=== PATIENT | male | born 1940 | race Caucasian/White ===

== ENCOUNTER 2018-10-29 14:42 | Inpatient (IN) ==
[2018-10-29 16:26] LABS: Basophils % 0.1 %; Eosinophils # 0.2 K/mcL (0.0-0.6); Eosinophils % 2.3 %; Hematocrit 33.4 % (37.5-50.1); Hemoglobin 11.8 g/dL (12.9-16.9); Immature Granulocytes % 0.6 % (0-4); Lymphocytes # 0.8 K/mcL (0.6-4.6); Lymphocytes % 10.7 %; Mean Corpuscular HGB Conc 35.3 g/dL (31.6-35.5); Mean Corpuscular Hemoglobin 34.3 pg (28.0-33.3); Mean Corpuscular Volume 97.1 fL (83.0-100.0); Monocytes # 1.1 K/mcL (0.0-1.3); Monocytes % 15.8 %; Platelet Count 103 K/mcL (140-400); Red Blood Count 3.44 M/mcL (4.19-5.50); Red Cell Distribution Width 12.8 % (11.5-14.5); Segmented Neutrophils % 70.5 %
[2018-10-29 16:36] LABS: INR 1.2; Prothrombin Time 13.7 Seconds (9.4-12.1)
[2018-10-29 16:39] LABS: Activated Partial Thrombo Time 33.9 Seconds (26.0-36.0)
[2018-10-29 16:41] LABS: Troponin I 0.03 ng/mL (< 0.04)
[2018-10-29 16:43] LABS: Alanine Aminotransferase 35 Units/L (7-52); Albumin 3.4 g/dL (3.5-5.7); Alkaline Phosphatase 140 Units/L (34-104); Aspartate Amino Transferase 41 Units/L (13-39); BUN/Creatinine Ratio 19 (6-26); Bilirubin,Direct 0.5 mg/dL (0.0-0.2); Bilirubin,Total 1.5 mg/dL (0.3-1.0); Blood Urea Nitrogen 22 mg/dL (8-23); Calcium 9.2 mg/dL (8.6-10.3); Carbon Dioxide 22 mEq/L (23-29); Chloride 96 mEq/L (98-107); Globulin 3.3 g/dL (2.4-3.5); Glucose 94 mg/dL (70-105); Lipase 76 Units/L (11-82); Osmolality,Calculated 261 (280-300); Potassium 4.5 mEq/L (3.5-5.1); Sodium 124 mEq/L (136-145); Total Protein 6.7 g/dL (6.4-8.9); eGFR For Non-African Americans > 60 (> 60)
[2018-10-29 16:48] LABS: Bilirubin,Urine Negative (Negative); Blood,Urine Negative (Negative); Clarity,Urine Cloudy (Clear); Color,Urine Dark Yellow (Yellow); Glucose,Urine (UA) Normal (Normal); Ketones,Urine Trace mg/dL (Negative); Leukocyte Esterase,Urine Negative (Negative); Nitrite,Urine Negative (Negative); PH,Urine 5.5 pH Units (5.0-8.0); Protein,Urine Negative (Neg-Trace); Specific Gravity,Urine 1.023 (1.010-1.025); Urobilinogen,Urine Normal (Normal)
[2018-10-29 16:50] LABS: Hyaline Casts,Urine None Seen per lpf (None-Few); Squamous Epithelial Cell,Urine Moderate per lpf (None-Few); WBC,Urine 0-3 per hpf (0-3)
[2018-10-29 17:00] LABS: Bacteria,Urine Few per hpf (None-Few); Calcium Oxalate Crystals,Urine Present
[2018-10-29] MEDS ORDERED: 0.9 % Sodium Chloride 1,000 ML IVC ONE (18:10)
--- NOTE | 2018-10-29 18:59 | Emergency Department Note ---
Disposition Clinical Impression: Hyponatremia, History of ascites Cirrhosis Qualifiers: Hepatic cirrhosis type: unspecified hepatic cirrhosis Ascites presence: with ascites Qualified Code(s): K74.60 - Unspecified cirrhosis of liver Disposition: Admitted As Inpatient Condition: Good Referrals: Karl Gamez MD [Primary Care Provider] - General Adult HPI - General Chief complaint: ED General Medical Stated complaint: multiple complaints Time Seen by Provider: 10/29/18 15:33 Source: patient Limitations: no limitations Nursing Notes Reviewed: Yes Vital Signs Reviewed: Yes - History of Present Illness HPI Narrative: 78-year-old male presents emergency department for evaluation of hyponatremia. Patient had outpatient labs taken for evaluation with Dr. Fitzgerald for evaluation of his cirrhosis. Patient states he has had increasing weakness and fatigue over the past week however he denies melena, hematochezia, chest pain, shortness of breath, rash, syncope. Patient has a distended abdomen from his cirrhosis and states it is drained every few weeks. Pain Scale: 5 - Related Data Home Medications Medication Instructions Recorded Confirmed Aspirin Enteric Coated [Aspirin EC] 81 mg PO DAILY 03/04/16 01/25/18 Metoprolol [Lopressor] 25 mg PO BID 03/04/16 01/25/18 Pravastatin Sodium 10 mg PO DAILY 03/04/16 01/25/18 metFORMIN [Glucophage] 500 mg PO BID 03/04/16 01/25/18 Furosemide [Lasix] 40 mg PO DAILY 11/10/17 01/25/18 Spironolactone [Aldactone] 100 mg PO DAILY 11/10/17 01/25/18 Ascorbate Calcium [Vitamin C] 500 mg PO DAILY 01/25/18 01/25/18 Isosorbide MONOnitrate [Isosorbide 10 mg PO BID 01/25/18 01/25/18 Mononitrate] Allergies Allergy/AdvReac Type Severity Reaction Status Date / Time Iodinated Contrast- Oral and AdvReac See Verified 01/25/18 10:01 IV Dye Comments pantoprazole [From Protonix] AdvReac see comment Verified 10/22/18 11:29 All systems ED: reviewed and negative except as stated. Review of Systems: As Per HPI Past Medical History - Past Medical History Attestation: Yes The following information was validated with the patient. Source: patient Medical history: Reports: coronary artery disease, diabetes, hyperlipidemia, myocardial infarction, other Surgical history: Reports: other Psychiatric history: Reports: anxiety - Social History Smoking Status: Former smoker Smokeless Tobacco Status: No Alcohol use: Reports: rarely Drug use: Reports: none Physical Exam General: Alert and in no acute distress Skin: Warm, dry, intact Head: Normocephalic and atraumatic Neck: Supple, trachea midline and no tenderness Cardiovascular: RRR, no murmur, normal perfusion Respiratory: CTAB, no wheezing, cough, or respiratory distress Musculoskeletal: Normal strength, no tenderness, swelling or deformity GI: Soft, nontender, distended abdomen. Bowel sounds present Neuro: A&O to person, place, time and situation. No focal deficits noted on exam Psychiatric: cooperative and appropriate mood and affect. - General Limitations: no limitations General appearance: alert Course Vital Signs Temperature 98.7 F 10/29/18 14:52 Pulse Rate 90 10/29/18 14:52 Respiratory Rate 14 10/29/18 14:52 Blood Pressure 112/72 10/29/18 14:52 O2 Sat by Pulse Oximetry 99 10/29/18 14:52 Temperature 98.7 F 10/29/18 15:31 Pulse Rate 80 10/29/18 18:00 Respiratory Rate 16 10/29/18 18:00 Blood Pressure 115/74 10/29/18 18:00 O2 Sat by Pulse Oximetry 100 10/29/18 18:00 Oxygen Delivery Oxygen Delivery Nasal Cannula Medical Decision Making - [facility] Narrative Medical decision making narrative: Patient is euvolemic hyponatremic. He will be admitted to the hospitalist for further care and evaluation. Patient is comfortable with this plan. - Medical Records Medical records reviewed: Yes I reviewed the patient's medical records. - Lab Data Lab results reviewed: Yes I reviewed the patient's lab results. Result diagrams: 10/29/18 15:54 10/29/18 15:54 Lab Results 10/29/18 10/29/18 10/29/18 Range/Units 15:53 15:54 15:54 WBC 7.1 (4.3-11.1) K/mcL RBC 3.44 L (4.19-5.50) M/mcL Hgb 11.8 L (12.9-16.9) g/dL Hct 33.4 L (37.5-50.1) % MCV 97.1 (83.0-100.0) fL MCH 34.3 H (28.0-33.3) pg MCHC 35.3 (31.6-35.5) g/dL RDW 12.8 (11.5-14.5) % Plt Count 103 L (140-400) K/mcL MPV 9.0 L (9.4-12.4) fL Immature Gran % 0.6 (0-4) % Seg Neutrophils % 70.5 % Lymphocytes % 10.7 % Monocytes % 15.8 % Eosinophils % 2.3 % Basophils % 0.1 % Neutrophils # 5.0 (1.6-8.9) K/mcL Lymphocytes # 0.8 (0.6-4.6) K/mcL Monocytes # 1.1 (0.0-1.3) K/mcL Eosinophils # 0.2 (0.0-0.6) K/mcL Basophils # 0.0 (0.0-0.2) K/mcL PT 13.7 H (9.4-12.1) Seconds INR 1.2 APTT 33.9 (26.0-36.0) Seconds Sodium 124 L (136-145) mEq/L Potassium 4.5 (3.5-5.1) mEq/L Chloride 96 L (98-107) mEq/L Carbon Dioxide 22 L (23-29) mEq/L BUN 22 (8-23) mg/dL Creatinine 1.17 (0.70-1.30) mg/dL Est GFR ( Amer) > 60 (> 60) Est GFR (Non-Af Amer) > 60 (> 60) BUN/Creatinine Ratio 19 (6-26) Glucose 94 (70-105) mg/dL Calculated Osmolality 261 L (280-300) Lactic Acid (0.5-2.2) mmol/L Calcium 9.2 (8.6-10.3) mg/dL Total Bilirubin 1.5 H (0.3-1.0) mg/dL Direct Bilirubin 0.5 H (0.0-0.2) mg/dL Indirect Bilirubin 1.0 (0.0-1.2) mg/dL AST 41 H (13-39) Units/L ALT 35 (7-52) Units/L Alkaline Phosphatase 140 H (34-104) Units/L Ammonia (16-53) mcmol/L Troponin I 0.03 (< 0.04) ng/mL Serum Total Protein 6.7 (6.4-8.9) g/dL Albumin 3.4 L (3.5-5.7) g/dL Globulin 3.3 (2.4-3.5) g/dL Albumin/Globulin Ratio 1.0 L (1.1-2.2) Lipase 76 (11-82) Units/L Urine Color (Yellow) Urine Clarity (Clear) Urine pH (5.0-8.0) pH Units Ur Specific [place] (1.010-1.025) Urine Protein (Neg-Trace) mg/dL Urine Glucose (UA) (Normal) mg/dL Urine Ketones (Negative) mg/dL Urine Blood (Negative) Urine Nitrite (Negative) Urine Bilirubin (Negative) Urine Urobilinogen (Normal) mg/dL Ur Leukocyte Esterase (Negative) Urine Microscopic RBC (0-3) per hpf Urine Microscopic WBC (0-3) per hpf Ur Squamous Epith Cells (None-Few) per lpf Calcium Oxalate Crystal Urine Bacteria (None-Few) per hpf Hyaline Casts (None-Few) per lpf Ur Culture Indicated? (NO) Urine Osmolality (300-1090) mOsm/kg Blood Type Antibody Screen 10/29/18 10/29/18 10/29/18 Range/Units 16:01 16:01 16:14 WBC (4.3-11.1) K/mcL RBC (4.19-5.50) M/mcL Hgb (12.9-16.9) g/dL Hct (37.5-50.1) % MCV (83.0-100.0) fL MCH (28.0-33.3) pg MCHC (31.6-35.5) g/dL RDW (11.5-14.5) % Plt Count (140-400) K/mcL MPV (9.4-12.4) fL Immature Gran % (0-4) % Seg Neutrophils % % Lymphocytes % % Monocytes % % Eosinophils % % Basophils % % Neutrophils # (1.6-8.9) K/mcL Lymphocytes # (0.6-4.6) K/mcL Monocytes # (0.0-1.3) K/mcL Eosinophils # (0.0-0.6) K/mcL Basophils # (0.0-0.2) K/mcL PT (9.4-12.1) Seconds INR APTT (26.0-36.0) Seconds Sodium (136-145) mEq/L Potassium (3.5-5.1) mEq/L Chloride (98-107) mEq/L Carbon Dioxide (23-29) mEq/L BUN (8-23) mg/dL Creatinine (0.70-1.30) mg/dL Est GFR ( Amer) (> 60) Est GFR (Non-Af Amer) (> 60) BUN/Creatinine Ratio (6-26) Glucose (70-105) mg/dL Calculated Osmolality (280-300) Lactic Acid 3.0 H (0.5-2.2) mmol/L Calcium (8.6-10.3) mg/dL Total Bilirubin (0.3-1.0) mg/dL Direct Bilirubin (0.0-0.2) mg/dL Indirect Bilirubin (0.0-1.2) mg/dL AST (13-39) Units/L ALT (7-52) Units/L Alkaline Phosphatase (34-104) Units/L Ammonia (16-53) mcmol/L Troponin I (< 0.04) ng/mL Serum Total Protein (6.4-8.9) g/dL Albumin (3.5-5.7) g/dL Globulin (2.4-3.5) g/dL Albumin/Globulin Ratio (1.1-2.2) Lipase (11-82) Units/L Urine Color Dark Yellow (Yellow) Urine Clarity Cloudy A (Clear) Urine pH 5.5 (5.0-8.0) pH Units Ur Specific [place] 1.023 (1.010-1.025) Urine Protein Negative (Neg-Trace) mg/dL Urine Glucose (UA) Normal (Normal) mg/dL Urine Ketones Trace H (Negative) mg/dL Urine Blood Negative (Negative) Urine Nitrite Negative (Negative) Urine Bilirubin Negative (Negative) Urine Urobilinogen Normal (Normal) mg/dL Ur Leukocyte Esterase Negative (Negative) Urine Microscopic RBC 3-5 H (0-3) per hpf Urine Microscopic WBC 0-3 (0-3) per hpf Ur Squamous Epith Cells Moderate H (None-Few) per lpf Calcium Oxalate Crystal Present Urine Bacteria Few (None-Few) per hpf Hyaline Casts None Seen (None-Few) per lpf Ur Culture Indicated? NO (NO) Urine Osmolality (300-1090) mOsm/kg Blood Type A POSITIVE Antibody Screen NEGATIVE 10/29/18 10/29/18 Range/Units 16:22 16:44 WBC (4.3-11.1) K/mcL RBC (4.19-5.50) M/mcL Hgb (12.9-16.9) g/dL Hct (37.5-50.1) % MCV (83.0-100.0) fL MCH (28.0-33.3) pg MCHC (31.6-35.5) g/dL RDW (11.5-14.5) % Plt Count (140-400) K/mcL MPV (9.4-12.4) fL Immature Gran % (0-4) % Seg Neutrophils % % Lymphocytes % % Monocytes % % Eosinophils % % Basophils % % Neutrophils # (1.6-8.9) K/mcL Lymphocytes # (0.6-4.6) K/mcL Monocytes # (0.0-1.3) K/mcL Eosinophils # (0.0-0.6) K/mcL Basophils # (0.0-0.2) K/mcL PT (9.4-12.1) Seconds INR APTT (26.0-36.0) Seconds Sodium (136-145) mEq/L Potassium (3.5-5.1) mEq/L Chloride (98-107) mEq/L Carbon Dioxide (23-29) mEq/L BUN (8-23) mg/dL Creatinine (0.70-1.30) mg/dL Est GFR ( Amer) (> 60) Est GFR (Non-Af Amer) (> 60) BUN/Creatinine Ratio (6-26) Glucose (70-105) mg/dL Calculated Osmolality (280-300) Lactic Acid (0.5-2.2) mmol/L Calcium (8.6-10.3) mg/dL Total Bilirubin (0.3-1.0) mg/dL Direct Bilirubin (0.0-0.2) mg/dL Indirect Bilirubin (0.0-1.2) mg/dL AST (13-39) Units/L ALT (7-52) Units/L Alkaline Phosphatase (34-104) Units/L Ammonia 34 (16-53) mcmol/L Troponin I (< 0.04) ng/mL Serum Total Protein (6.4-8.9) g/dL Albumin (3.5-5.7) g/dL Globulin (2.4-3.5) g/dL Albumin/Globulin Ratio (1.1-2.2) Lipase (11-82) Units/L Urine Color (Yellow) Urine Clarity (Clear) Urine pH (5.0-8.0) pH Units Ur Specific [place] (1.010-1.025) Urine Protein (Neg-Trace) mg/dL Urine Glucose (UA) (Normal) mg/dL Urine Ketones (Negative) mg/dL Urine Blood (Negative) Urine Nitrite (Negative) Urine Bilirubin (Negative) Urine Urobilinogen (Normal) mg/dL Ur Leukocyte Esterase (Negative) Urine Microscopic RBC (0-3) per hpf Urine Microscopic WBC (0-3) per hpf Ur Squamous Epith Cells (None-Few) per lpf Calcium Oxalate Crystal Urine Bacteria (None-Few) per hpf Hyaline Casts (None-Few) per lpf Ur Culture Indicated? (NO) Urine Osmolality 666 (300-1090) mOsm/kg Blood Type Antibody Screen - Radiology Data Radiology results reviewed: Yes I reviewed the patient's radiology results.
--- NOTE | 2018-10-29 19:32 | Internal Med History&Physical ---
<Shahzad Lopez - Last Filed: 10/30/18 00:13> Date of Encounter: 10/29/18 Time of Encounter: 19:32 Internal Medicine - H&P: HPI Chief complaint: Sent by PCP Admitted From: Home History of present illness: Mr. Cruz is a 78 year old [facility] patient with a past medical history of cirrhosis, diet controlled diabetes mellitus, CAD, and bimonthly therapeutic paracentesis who was sent to the emergency department by his primary care provider, Dr. Gamez, secondary to hyponatremia. Patient reports associated weakness, insomnia, decreased appetite, and itching. Patient reports Dr. Gamez stopped his Metoprolol, Lasix, and Spironolactone due to hypotension at his most recent office visit 10/27/18. Patient reports about 50 pounds weight loss in the past 12 months, most pronounced after therapeutic paracentesis. Last EGD on 01/25/18 revealed grade 1 esophageal varices, portal hypertensive gastropathy, and resolved gastric ulcers found on previous EGD 3 months prior. Patient has been receiving paracentesis every 2 weeks since 09/10/18 due to ascites. Past Med Surg Social Fam HX - Past Medical History Medical history: cirrhosis (esophageal varices), coronary artery disease, diabetes, hyperlipidemia, myocardial infarction, other Additional medical history: facial skin lesion, anemia,. WHITE COAT HYPERTENSION. ANXIETY. DM type II (resolved). GLAUCOMA. ERECTILE DYSFUNCTION. THROMBOCYTOPENIA. MIXED HIGH LIPIDS. CAD Psychiatric history: anxiety - Past Surgical History Surgical History: cataract, other Additional surgical history: cataracts. vasectomy. heart cath - Social History Smoking Status: Former smoker Smokeless Tobacco Status: No Alcohol use: rarely Drug use: none - Family History Mother Living Status: Hx Family Cardiac Disorders: Yes (HTN) Father Living Status: Hx Family Cancer: Yes Internal Medicine - H&P: Meds Aspirin Enteric Coated [Aspirin EC] 81 mg PO DAILY 03/04/16 [History] Metoprolol [Lopressor] 25 mg PO BID 03/04/16 [History] Pravastatin Sodium 10 mg PO DAILY 03/04/16 [History] metFORMIN [Glucophage] 500 mg PO BID 03/04/16 [History] Furosemide [Lasix] 40 mg PO DAILY 11/10/17 [History] Spironolactone [Aldactone] 100 mg PO DAILY 11/10/17 [History] Ascorbate Calcium [Vitamin C] 500 mg PO DAILY 01/25/18 [History] Isosorbide MONOnitrate [Isosorbide Mononitrate] 10 mg PO BID 01/25/18 [History] Allergy/AdvReac Type Severity Reaction Status Date / Time Iodinated Contrast- Oral and AdvReac See Verified 01/25/18 10:01 IV Dye Comments pantoprazole [From Protonix] AdvReac see comment Verified 10/22/18 11:29 All Systems PM: A 10-system review of systems was performed and is negative for pertinent findings except as documented above in the HPI. - Constitutional Constitutional: anorexia, fatigue, lethargy, malaise, weakness, weight loss, no chills, no fever(s), no weight gain - EENT Eyes: no blurry vision, no diplopia Nose, mouth and throat: no dysphagia, no sinus pain, no sore throat - Cardiovascular Cardiovascular ROS IM: no chest pain, no dyspnea, no edema, no orthopnea - Respiratory Respiratory: no cough, no dyspnea, no wheezing, no chest congestion - Gastrointestinal Gastrointestinal: bloating, no abdominal pain, no change in stool character, no constipation, no cramping, no diarrhea, no dyspepsia, no dysphagia, no hematemesis, no hematochezia, no melena, no nausea, no vomiting - Genitourinary Genitourinary ROS male: no dysuria, no urinary frequency, no urinary urgency - Musculoskeletal Musculoskeletal ROS IM: no arthralgias, no back pain, no numbness, no tingling - Integumentary Integumentary IM: no erythema, no new lesions, no rash - Neurological Neurological ROS: weakness, no confusion, no dizziness, no headache(s), no numbness, no tingling - Psychiatric Psychiatric: anxiety, depression - Endocrine Endocrine IM: fatigue, no polydipsia, no polyphagia, no polyuria - Hematologic/Lymphatic Hematologic/Lymphatic: no easy bleeding, no easy bruising - Constitutional Vitals: Temp Pulse Resp BP Pulse Ox 98.7 F 80 16 115/74 100 10/29/18 15:31 10/29/18 18:00 10/29/18 18:00 10/29/18 18:00 10/29/18 18:00 General appearance: Present: cooperative, A&O X 3, pleasant, no acute distress, answers questions appropriately Exam: awake - Head Head exam: Present: atraumatic, normocephalic - Eye Eye exam: Present: EOMI, PERRL, conjuntiva pink, sclera anicteric Pupils: Present: PERRL - ENT ENT exam: Present: mucous membranes moist, normal oropharynx - Neck Neck exam general surgery: Present: supple, trachea midline. Absent: lymphadenopathy - Respiratory Respiratory exam: Present: CTAB. Absent: accessory muscle use, rales, respiratory distress, rhonchi, wheezes - Cardiovascular Cardiovascular exam: Present: RRR, +S1, +S2. Absent: diastolic murmur, gallop, rubs, systolic murmur - GI/Abdominal GI/Abdominal exam: Present: distended, normal bowel sounds, soft, no peritoneal signs. Absent: guarding, tenderness - Expanded GI/Abdominal Exam GI/Abdominal exam expanded: Present: ascites - Extremities Exam Extremities exam: Present: normal inspection, warm, radial pulses palpable and symmetrical. Absent: calf tenderness, cyanotic, pedal edema - Back Exam Back exam: Present: normal inspection. Absent: paraspinal tenderness, tenderness - Neurological Exam Neurological exam: Present: alert, CN II-XII intact, oriented X3, no focal deficits. Absent: facial droop, speech deficit - Psychiatric Psychiatric exam: Present: flat affect. Absent: anxious - Skin Skin exam: Present: dry, intact, normal color, warm Internal Med - H&P Results - Labs CBC & Chem 7: 10/29/18 15:54 10/29/18 20:04 Labs: Short CBC 10/29/18 Range/Units 15:54 WBC 7.1 (4.3-11.1) K/mcL Hgb 11.8 L (12.9-16.9) g/dL Hct 33.4 L (37.5-50.1) % Plt Count 103 L (140-400) K/mcL Neutrophils # 5.0 (1.6-8.9) K/mcL BMP 10/29/18 15:54 Sodium 124 L Potassium 4.5 Chloride 96 L Carbon Dioxide 22 L BUN 22 Creatinine 1.17 Glucose 94 Calcium 9.2 Cardiac Enzymes 10/29/18 Range/Units 15:54 Troponin I 0.03 (< 0.04) ng/mL Liver Function 10/29/18 Range/Units 15:54 Total Bilirubin 1.5 H (0.3-1.0) mg/dL Direct Bilirubin 0.5 H (0.0-0.2) mg/dL AST 41 H (13-39) Units/L ALT 35 (7-52) Units/L Alkaline Phosphatase 140 H (34-104) Units/L Albumin 3.4 L (3.5-5.7) g/dL Urine 10/29/18 Range/Units 16:14 Urine Color Dark Yellow (Yellow) Urine Clarity Cloudy A (Clear) Urine pH 5.5 (5.0-8.0) pH Units Ur Specific [place] 1.023 (1.010-1.025) Urine Protein Negative (Neg-Trace) mg/dL Urine Glucose (UA) Normal (Normal) mg/dL - Pulse Oximetry Interpretation Digit-Finger O2 Sat by Pulse Oximetry: 100 (On 2 L supplemental oxygen) Actions taken: other (Turned off supplemental oxygen) - Assessment and plan (1) Hyponatremia Current Visit: Yes Status: Acute Assessment and plan: Hypovolemic hyponatremia likely secondary to over aggressive outpatient diuresis Na 124, repeat Na level 124 s/p 1L NS Random cortisol 16.7, TSH level 1.3, Urine osmolality 666, urine sodium 31.1, serum osmolality pending Continue NS at 75cc/hr for 1 more liter. Be cautious of over hydration due to need for therapeutic paracentesis every 2 weeks. Monitor BMP q4h, do not correct sodium > 8 mEq in 24 hours to prevent osmotic demyelination syndrome. (2) Cirrhosis Current Visit: Yes Status: Chronic Assessment and plan: Current MELD sodium score is 21 (indicating 7 - 10% Estimated 90-Day Mortality). Patient was referred to IR by poultry buyer Dr. Fitzgerald on 09/29/18, for a TIPS procedure, however Dr. Brewer is not available until 11/17/18 to perform the TIPS procedure per IR staff. Patient reports PCP stopped his metoprolol, Lasix, and Spironolactone due to hypotension at his most recent office visit 10/27/18. Ammonia level 34. Continue home Lactulose Qualifiers: Hepatic cirrhosis type: unspecified hepatic cirrhosis Ascites presence: with ascites Qualified Code(s): K74.60 - Unspecified cirrhosis of liver; R18.8 - Other ascites (3) History of ascites Current Visit: Yes Status: Chronic Assessment and plan: Patient has been receiving paracentesis every 2 weeks since 09/10/18 due to ascites. Last paracentesis 10/22/18 Monitor for signs of fluid overload. (4) History of esophageal varices Current Visit: No Status: Chronic Assessment and plan: Last EGD on 01/25/18 revealed revealed grade 1 esophageal varices, portal hypertensive gastropathy, and resolved gastric ulcers found on previous EGD 3 months prior. (5) Thrombocytopenia Current Visit: Yes Status: Chronic Assessment and plan: No active bleeding. Continue monitoring (6) CAD (coronary artery disease) Current Visit: No Status: Chronic Assessment and plan: Patient advised to stop beta jeff due to hypotension. Continue ASA and statin. Qualifiers: Coronary Disease-Associated Artery/Lesion type: [place] artery [place] vs. transplanted heart: [place] heart Associated angina: angina presence unspecified Qualified Code(s): I25.10 - Atherosclerotic heart disease of [place] coronary artery without angina pectoris (7) HLD (hyperlipidemia) Current Visit: No Status: Chronic Assessment and plan: Continue statin Qualifiers: Hyperlipidemia type: unspecified Qualified Code(s): E78.5 - Hyperlipidemia, unspecified (8) DM type 2 (diabetes mellitus, type 2) Current Visit: Yes Status: Acute Assessment and plan: Diet controlled. Continue low dose SSI and Accu-Cheks ACHS Qualifiers: Diabetes mellitus intermediate insulin use: without long wall shear operator use Diabetes maximilian litus complication status: without complication Qualified Code(s): E11.9 - Type 2 diabetes mellitus without complications (9) DVT prophylaxis Current Visit: Yes Status: Acute Assessment and plan: Heparin subcutaneous - Time Spent With Patient Total time spent is greater than 50% in coordination of care (as documented) at patient's floor/unit and/or counseling patient: <YumikoJose vance - Last Filed: 10/30/18 02:17> Date of Encounter: 10/30/18 Time of Encounter: 01:00 - Constitutional Constitutional: anorexia, fatigue, weakness, no fever(s) - Cardiovascular Cardiovascular ROS IM: no chest pain, no dyspnea - Respiratory Respiratory: no cough, no chest congestion - Gastrointestinal Gastrointestinal: no diarrhea, no hematemesis, no hematochezia, no melena, no vomiting - Genitourinary Genitourinary ROS male: no dysuria, no flank pain, no hematuria - Musculoskeletal Musculoskeletal ROS IM: no arthralgias, no back pain - Integumentary Integumentary IM: no rash - Neurological Neurological ROS: no focal weakness - Constitutional Vitals: Temp Pulse Resp BP Pulse Ox 98.1 F 83 17 111/73 98 10/30/18 00:25 10/30/18 00:25 10/30/18 00:25 10/30/18 00:25 10/30/18 00:25 General appearance: Present: A&O X 3, no acute distress - Head Head exam: Present: normal inspection - Eye Eye exam: Present: PERRL. Absent: scleral icterus - ENT ENT exam: Present: mucous membranes dry, normal exam - Neck Neck exam general surgery: Present: full ROM, supple. Absent: tenderness - Respiratory Respiratory exam: Present: CTAB. Absent: chest wall tenderness, rales, respiratory distress, rhonchi, wheezes - Cardiovascular Cardiovascular exam: Present: RRR - GI/Abdominal GI/Abdominal exam: Present: normal bowel sounds, soft. Absent: tenderness Additional comments: + fluid wave on exam, non-tender - Extremities Exam Extremities exam: Present: warm, radial pulses palpable and symmetrical. Absent: calf tenderness, pedal edema, tenderness - Back Exam Back exam: Absent: CVA tenderness (L), CVA tenderness (R) - Neurological Exam Neurological exam: Present: alert, oriented X3, no focal deficits - Psychiatric Psychiatric exam: Present: normal affect, normal mood - Skin Skin exam: Present: dry, intact, warm Additional comments: + skin tenting Internal Med - H&P Results - Labs CBC & Chem 7: 10/29/18 15:54 10/30/18 00:22 Labs: Short CBC 10/29/18 Range/Units 15:54 WBC 7.1 (4.3-11.1) K/mcL Hgb 11.8 L (12.9-16.9) g/dL Hct 33.4 L (37.5-50.1) % Plt Count 103 L (140-400) K/mcL Neutrophils # 5.0 (1.6-8.9) K/mcL BMP 10/29/18 10/29/18 10/30/18 15:54 20:04 00:22 Sodium 124 L 124 L 121 L Potassium 4.5 4.3 4.5 Chloride 96 L 98 100 Carbon Dioxide 22 L 21 L 21 L BUN 22 21 21 Creatinine 1.17 0.97 0.96 Glucose 94 83 153 H Calcium 9.2 8.8 8.5 L Cardiac Enzymes 10/29/18 Range/Units 15:54 Troponin I 0.03 (< 0.04) ng/mL Liver Function 10/29/18 Range/Units 15:54 Total Bilirubin 1.5 H (0.3-1.0) mg/dL Direct Bilirubin 0.5 H (0.0-0.2) mg/dL AST 41 H (13-39) Units/L ALT 35 (7-52) Units/L Alkaline Phosphatase 140 H (34-104) Units/L Albumin 3.4 L (3.5-5.7) g/dL Urine 10/29/18 Range/Units 16:14 Urine Color Dark Yellow (Yellow) Urine Clarity Cloudy A (Clear) Urine pH 5.5 (5.0-8.0) pH Units Ur Specific [place] 1.023 (1.010-1.025) Urine Protein Negative (Neg-Trace) mg/dL Urine Glucose (UA) Normal (Normal) mg/dL - Time Spent With Patient Total time spent is greater than 50% in coordination of care (as documented) at patient's floor/unit and/or counseling patient: - Attending Attestation I discussed the patient MANZANITA, past medical history, review of systems, lab data, and exam findings with Dr. Lopez. I then saw and examined patient independently. Based on exam and history, I agree with Dr. Lopez that the patient does appear to be intravascularly dry. Other than some mild ascites on exam, he has no evidence of edema. Mucous membranes are quite dry. I agree with holding his diuretics, hydrating him gingerly, and trending his chemistries. Abdomen exam does not suggest any peritonitis and/or tense ascites. Abdomen is quite soft with minimal fluid wave. Other than my comments above and noted exam findings, I agree with Dr. Lopez's assessment and plan.
[2018-10-29] MEDS ORDERED: *HR* Dextrose 50 % in Water (Syg) 50 ML SYRINGE IVP PRN (19:39)
[2018-10-29] MEDS ORDERED: Naloxone 0.4 MG/ML INJ IVP PRN (19:39)
[2018-10-29] MEDS ORDERED: Ondansetron 4 MG/2 ML VIAL IVP PRN (19:39)
[2018-10-29] MEDS ORDERED: Dextrose Gel 15 GM/37.5 ML TUBE PO PRN ×2 (19:39)
[2018-10-29] MEDS ORDERED: Acetaminophen 325 MG TABLET PO PRN (19:39)
[2018-10-29] MEDS ORDERED: D5% in Water 1,000 ML IVC PRN (19:39)
[2018-10-29] MEDS ORDERED: 0.9 % Sodium Chloride 1,000 ML IVC SCH (19:45)
[2018-10-29 20:37] LABS: BUN/Creatinine Ratio 22 (6-26); Blood Urea Nitrogen 21 mg/dL (8-23); Calcium 8.8 mg/dL (8.6-10.3); Carbon Dioxide 21 mEq/L (23-29); Chloride 98 mEq/L (98-107); Glucose 83 mg/dL (70-105); Magnesium 1.8 mg/dL (1.6-2.6); Osmolality,Calculated 260 (280-300); Phosphorous 2.9 mg/dL (2.7-4.5); Potassium 4.3 mEq/L (3.5-5.1); Sodium 124 mEq/L (136-145); eGFR For Non-African Americans > 60 (> 60)
[2018-10-29 21:05] LABS: Estimated Average Glucose 123 mg/dl; Hemoglobin A1C 5.9 %
[2018-10-29] MEDS: *HR* Heparin 5,000 UNIT/ML VIAL SQ SCH (22:18)
[2018-10-29] MEDS: Insulin LISPRO 300 UNITS/3 ML VIAL SQ SCH (22:19)
[2018-10-29] MEDS: Lactulose Oral Soln 20 GM/30 ML UDC PO SCH (22:19)
[2018-10-30 01:03] LABS: BUN/Creatinine Ratio 22 (6-26); Blood Urea Nitrogen 21 mg/dL (8-23); Calcium 8.5 mg/dL (8.6-10.3); Carbon Dioxide 21 mEq/L (23-29); Chloride 100 mEq/L (98-107); Glucose 153 mg/dL (70-105); Osmolality,Calculated 258 (280-300); Potassium 4.5 mEq/L (3.5-5.1); Sodium 121 mEq/L (136-145); eGFR For Non-African Americans > 60 (> 60)
[2018-10-30] MEDS: *HR* Heparin 5,000 UNIT/ML VIAL SQ SCH ×3 (06:15→20:54)
[2018-10-30 07:52] LABS: Mean Corpuscular Hemoglobin 34.5 pg (28.0-33.3); Red Cell Distribution Width 12.6 % (11.5-14.5)
[2018-10-30 07:54] LABS: Hematocrit 32.5 % (37.5-50.1); Hemoglobin 11.3 g/dL (12.9-16.9); Mean Corpuscular HGB Conc 34.8 g/dL (31.6-35.5); Mean Corpuscular Volume 99.1 fL (83.0-100.0); Mean Platelet Volume 9.7 fL (9.4-12.4); Red Blood Count 3.28 M/mcL (4.19-5.50)
[2018-10-30 08:11] LABS: BUN/Creatinine Ratio 22 (6-26); Blood Urea Nitrogen 21 mg/dL (8-23); Calcium 8.6 mg/dL (8.6-10.3); Carbon Dioxide 18 mEq/L (23-29); Chloride 99 mEq/L (98-107); Glucose 97 mg/dL (70-105); Osmolality,Calculated 259 (280-300); Potassium 4.2 mEq/L (3.5-5.1); Sodium 123 mEq/L (136-145); eGFR For Non-African Americans > 60 (> 60)
[2018-10-30] MEDS: Aspirin Enteric Coated 81 MG Tablet PO SCH (08:19)
[2018-10-30] MEDS: Insulin LISPRO 300 UNITS/3 ML VIAL SQ SCH ×4 (08:19→23:26)
[2018-10-30] MEDS: Lactulose Oral Soln 20 GM/30 ML UDC PO SCH ×2 (08:20→20:53)
--- NOTE | 2018-10-30 10:41 | Event Note ---
Date of Encounter: 10/30/18 Time of Encounter: 08:45 H&P reviewed. Patient with history of cirrhosis dependent on intermittent paracentesis is admitted for asymptomatic hyponatremia. Despite IV fluid overnight, his sodium remains at 123. D/c IVF, start salt tab, and monitor his Na. If it doesn't improve, may require nephro consult.
[2018-10-30 12:47] LABS: BUN/Creatinine Ratio 22 (6-26); Blood Urea Nitrogen 21 mg/dL (8-23); Calcium 8.5 mg/dL (8.6-10.3); Carbon Dioxide 20 mEq/L (23-29); Chloride 100 mEq/L (98-107); Glucose 103 mg/dL (70-105); Osmolality,Calculated 261 (280-300); Potassium 4.5 mEq/L (3.5-5.1); Sodium 124 mEq/L (136-145); eGFR For Non-African Americans > 60 (> 60)
[2018-10-30 17:10] LABS: BUN/Creatinine Ratio 20 (6-26); Blood Urea Nitrogen 21 mg/dL (8-23); Calcium 8.8 mg/dL (8.6-10.3); Carbon Dioxide 18 mEq/L (23-29); Chloride 101 mEq/L (98-107); Glucose 132 mg/dL (70-105); Osmolality,Calculated 261 (280-300); Potassium 4.2 mEq/L (3.5-5.1); Sodium 123 mEq/L (136-145); eGFR For Non-African Americans > 60 (> 60)
[2018-10-30] MEDS ORDERED: 0.9 % Sodium Chloride 500 ML IVC ONE (17:21)
[2018-10-30] MEDS ORDERED: 0.9 % Sodium Chloride 500 ML ONE (17:27)
[2018-10-30 21:30] LABS: BUN/Creatinine Ratio 21 (6-26); Blood Urea Nitrogen 22 mg/dL (8-23); Calcium 8.4 mg/dL (8.6-10.3); Carbon Dioxide 21 mEq/L (23-29); Chloride 100 mEq/L (98-107); Glucose 98 mg/dL (70-105); Osmolality,Calculated 265 (280-300); Potassium 4.1 mEq/L (3.5-5.1); Sodium 126 mEq/L (136-145); eGFR For Non-African Americans > 60 (> 60)
[2018-10-31 05:18] LABS: Hematocrit 29.6 % (37.5-50.1); Hemoglobin 10.4 g/dL (12.9-16.9); Immature Platelets 1.1 % (1.1-6.1); Mean Corpuscular HGB Conc 35.1 g/dL (31.6-35.5); Mean Corpuscular Hemoglobin 34.2 pg (28.0-33.3); Mean Corpuscular Volume 97.4 fL (83.0-100.0); Mean Platelet Volume 9.1 fL (9.4-12.4); Red Blood Count 3.04 M/mcL (4.19-5.50); Red Cell Distribution Width 12.5 % (11.5-14.5)
[2018-10-31 05:37] LABS: BUN/Creatinine Ratio 24 (6-26); Blood Urea Nitrogen 24 mg/dL (8-23); Calcium 8.4 mg/dL (8.6-10.3); Carbon Dioxide 18 mEq/L (23-29); Chloride 101 mEq/L (98-107); Glucose 122 mg/dL (70-105); Osmolality,Calculated 269 (280-300); Potassium 4.8 mEq/L (3.5-5.1); Sodium 127 mEq/L (136-145); eGFR For Non-African Americans > 60 (> 60)
[2018-10-31] MEDS: *HR* Heparin 5,000 UNIT/ML VIAL SQ SCH (06:32)
[2018-10-31] MEDS: Insulin LISPRO 300 UNITS/3 ML VIAL SQ SCH ×3 (08:58→18:42)
--- NOTE | 2018-10-31 11:36 | Internal Med Progress Note ---
Hospitalist Progress Note - Encounter Date of Encounter: 10/31/18 Time of Encounter: 09:30 - Subjective Interval History: No acute events overnight. Denies any headache, blurring of vision, or focal weakness/numbness. No SOB or worsening abdominal distention. - Exam Vitals: Temp Pulse Resp BP Pulse Ox 97.9 F 86 16 116/71 95 10/31/18 07:57 10/31/18 07:57 10/31/18 07:57 10/31/18 07:57 10/31/18 07:57 Exam: General: Alert and oriented, not in acute distress. Cardiovascular:Normal S1 & S2, No JVD. Pulse regular. Lungs: clear to auscultation, no wheezes/rales Abdomen:Soft, obese abdomen. Non-tender, no rigidity. Neurological:Normal cognition and motor skills. Non-focal - Assessment and Plan (1) Hyponatremia Current Visit: Yes Status: Acute Assessment and Plan: Sodium trend over the course of yesterday noted. Was stable around 124 until pt was given 500ml of NS as well as sodium chloride 1g TID. Now increased to 127 continue salt tab monitor off IVF repeat BMP at 3pm, if drops again, may require another fluid bolus hold off on lasix (2) DM type 2 (diabetes mellitus, type 2) Current Visit: Yes Status: Acute Assessment and Plan: Diet controlled. Continue low dose SSI and Accu-Cheks ACHS (3) Cirrhosis Current Visit: Yes Status: Chronic Assessment and Plan: not in decompensation PRN paracentesis, scheduled for this coming Thursday lasix, aldactone on hold due to hyponatremia outpatient GI follow up (4) Thrombocytopenia Current Visit: Yes Status: Chronic Assessment and Plan: related to cirrhosis as above no signs and symptoms of bleeding (5) CAD (coronary artery disease) Current Visit: No Status: Chronic Assessment and Plan: resume home meds DVT Prophylaxis: EPCD given downtrending Plt count - Time Spent with Patient Total time spent is greater than 50% in coordination of care (as documented) at patient's floor/unit and/or counseling patient: Plan of Care Discussed with: patient Internal Medicine: Result - Labs CBC & Chem 7: 10/31/18 05:01 10/31/18 05:01 Labs: Short CBC 10/31/18 Range/Units 05:01 WBC 5.5 (4.3-11.1) K/mcL Hgb 10.4 L (12.9-16.9) g/dL Hct 29.6 L (37.5-50.1) % Plt Count 79 L (140-400) K/mcL BMP 10/30/18 10/30/18 10/30/18 12:11 16:22 21:00 Sodium 124 L 123 L 126 L Potassium 4.5 4.2 4.1 Chloride 100 101 100 Carbon Dioxide 20 L 18 L 21 L BUN 21 21 22 Creatinine 0.96 1.06 1.03 Glucose 103 132 H 98 Calcium 8.5 L 8.8 8.4 L 10/31/18 05:01 Sodium 127 L Potassium 4.8 Chloride 101 Carbon Dioxide 18 L BUN 24 H Creatinine 0.99 Glucose 122 H Calcium 8.4 L - ABG Interpretation ABG results: PT/INR, D-dimer PT 13.7 Seconds (9.4-12.1) H 10/29/18 15:53 Consult Discharge Plan - Plan Referrals: Karl Gamez MD [Primary Care Provider] - (2) DM type 2 (diabetes mellitus, type 2) Qualifiers: Diabetes mellitus salvage determiner insulin use: without salvage determiner use Diabetes mellitus complication status: without complication Qualified Code(s): E11.9 - Type 2 diabetes mellitus without complications (3) Cirrhosis Qualifiers: Hepatic cirrhosis type: unspecified hepatic cirrhosis Ascites presence: with ascites Qualified Code(s): K74.60 - Unspecified cirrhosis of liver; R18.8 - Other ascites (5) CAD (coronary artery disease) Qualifiers: Coronary Disease-Associated Artery/Lesion type: [place] artery [place] vs. transplanted heart: [place] heart Associated angina: angina presence unspecified Qualified Code(s): I25.10 - Atherosclerotic heart disease of [place] coronary artery without angina pectoris
[2018-10-31] MEDS: Lactulose Oral Soln 20 GM/30 ML UDC PO SCH ×2 (12:01→21:03)
[2018-10-31] MEDS: Aspirin Enteric Coated 81 MG Tablet PO SCH (12:02)
[2018-10-31] MEDS ORDERED: MOM Conc 10 ML UD.LIQ PO PRN (15:39)
[2018-10-31 16:04] LABS: BUN/Creatinine Ratio 23 (6-26); Blood Urea Nitrogen 26 mg/dL (8-23); Calcium 8.9 mg/dL (8.6-10.3); Carbon Dioxide 18 mEq/L (23-29); Chloride 99 mEq/L (98-107); Glucose 150 mg/dL (70-105); Osmolality,Calculated 268 (280-300); Potassium 4.5 mEq/L (3.5-5.1); Sodium 125 mEq/L (136-145); eGFR For Non-African Americans > 60 (> 60)
[2018-10-31] MEDS ORDERED: 0.9 % Sodium Chloride 1,000 ML IVC SCH (16:45)
[2018-11-01] MEDS: Insulin LISPRO 300 UNITS/3 ML VIAL SQ SCH ×3 (00:01→11:54)
[2018-11-01 03:04] LABS: Hematocrit 28.1 % (37.5-50.1); Hemoglobin 10.1 g/dL (12.9-16.9); Immature Platelets 1.3 % (1.1-6.1); Mean Corpuscular HGB Conc 35.9 g/dL (31.6-35.5); Mean Corpuscular Hemoglobin 34.9 pg (28.0-33.3); Mean Corpuscular Volume 97.2 fL (83.0-100.0); Mean Platelet Volume 9.4 fL (9.4-12.4); Red Blood Count 2.89 M/mcL (4.19-5.50); Red Cell Distribution Width 12.5 % (11.5-14.5)
[2018-11-01 03:25] LABS: BUN/Creatinine Ratio 27 (6-26); Blood Urea Nitrogen 27 mg/dL (8-23); Calcium 8.4 mg/dL (8.6-10.3); Carbon Dioxide 16 mEq/L (23-29); Chloride 101 mEq/L (98-107); Glucose 121 mg/dL (70-105); Osmolality,Calculated 266 (280-300); Potassium 4.7 mEq/L (3.5-5.1); Sodium 125 mEq/L (136-145); eGFR For Non-African Americans > 60 (> 60)
[2018-11-01] MEDS: Lactulose Oral Soln 20 GM/30 ML UDC PO SCH ×2 (08:22→21:32)
[2018-11-01] MEDS: Aspirin Enteric Coated 81 MG Tablet PO SCH (08:22)
[2018-11-01] MEDS ORDERED: Tolvaptan 15 MG TABLET PO ONE (09:57)
--- NOTE | 2018-11-01 09:57 | Nephrology Consult Note ---
Date of Encounter: 11/01/18 Time of Encounter: 09:10 Assessment and Plan (1) Hyponatremia Current Visit: Yes Status: Acute Multifactorial Hyponatremia with risk factors: cirrhosis/ascites consistent with a hypervolemic hyponatremia, but his U Osmo was so elevated there is also a component of SIADH. Therefore, I recommend a fluid restriction, NaCl tablets -- as you have done -- and will cautiously recommend a one time dose of Tolvaptan (will need to monitor LFTs). For his hypotension, I also recommend starting Midodrine to better maintain MAP and ideally avoid needing fluid boluses. Continue to track the PNa. Thank you for consulting the [facility]; will follow with you. (2) Cirrhosis Current Visit: Yes Status: Chronic Contributing to the hyponatremia. See above. Qualifiers: Hepatic cirrhosis type: unspecified hepatic cirrhosis Ascites presence: with ascites Qualified Code(s): K74.60 - Unspecified cirrhosis of liver; R18.8 - Other ascites (3) History of ascites Current Visit: Yes Status: Chronic See above. History of Present Illness - Reason for Consult Consult date: 11/01/18 hyponatremia Requesting physician: Bob Mcgraw [facility] - Chief Complaint Resistant Hyponatremia - History of Present Illness Jorge Cruz is a very pleasant 78 y/o WM with a pmh of former alcoholism (he quite about 2 yr ago, he said), cirrhosis of the liver with recurrent ascites, and et al who was found to have worsened acute on chronic hyponatremia. His hyponatremia did not improve and Nephrology was consulted. He denied consuming beer, wine or liquor recently, and he denied NSAIDs prior to admission. 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 He denied N/V or confusion or tremor or prior seizures. He did not affirm F/C, burning urination, though he has felt the eugene catheter that was recently placed. He denied having worsening shortness of breath or difficulty swallowing. His BPs dropped yesterday and he was given an IVF bolus. FHx: no relatives with ESRD. Past Med Surg Social Fam HX - Past Medical History Medical history: cirrhosis (esophageal varices), coronary artery disease, diabetes, hyperlipidemia, myocardial infarction, other Additional medical history: facial skin lesion, anemia,. WHITE COAT HYPERTENSION. ANXIETY. DM type II (resolved). GLAUCOMA. ERECTILE DYSFUNCTION. THROMBOCYTOPENIA. MIXED HIGH LIPIDS. CAD Psychiatric history: anxiety - Past Surgical History Surgical History: cataract, other Additional surgical history: cataracts. vasectomy. heart cath - Social History Smoking Status: Former smoker Smokeless Tobacco Status: No Alcohol use: rarely Drug use: none - Family History Mother Living Status: Hx Family Cardiac Disorders: Yes (HTN) Father Living Status: Hx Family Cancer: Yes Medications and Allergies Pravastatin Sodium 10 mg PO DAILY 03/04/16 [History] Ascorbate Calcium [Vitamin C] 500 mg PO DAILY 01/25/18 [History] Isosorbide MONOnitrate [Isosorbide Mononitrate] 10 mg PO BID 01/25/18 [History] Cyanocobalamin (Vitamin B-12) [Vitamin B12] 1,000 mcg PO DAILY 10/31/18 [History] Lactulose 15 ml PO BID 10/31/18 [History] Allergy/AdvReac Type Severity Reaction Status Date / Time Iodinated Contrast- Oral and AdvReac See Verified 01/25/18 10:01 IV Dye Comments pantoprazole [From Protonix] AdvReac see comment Verified 10/22/18 11:29 Review of Systems All Systems: reviewed and no additional remarkable complaints except as stated Exam - Vital Signs Vital signs: Initial Vital Signs Temp Pulse Resp BP Pulse Ox 98.7 F 90 14 112/72 99 10/29/18 14:52 10/29/18 14:52 10/29/18 14:52 10/29/18 14:52 10/29/18 14:52 Vital Signs - Last 8 Hours Temp Pulse Resp BP Pulse Ox 11/01/18 06:38 97.7 F 80 96/57 11/01/18 04:06 97.8 F 79 15 111/72 99 Intake and Output 10/31/18 11/01/18 11/01/18 23:59 07:59 15:59 Intake Total 480 / 480 0 / 0 1620 / 1620 Output Total 0 / 0 250 / 250 Balance 480 / 480 -250 / -250 1620 / 1620 Intake: IV Fluids 1500 / 1500 0.9 % Sodium Chloride 1,000 ML 1000 / 1000 @ 75 mls/hr IVC .[id number] [facility] Rx #:[id number] Oral 480 / 480 0 / 0 120 / 120 Output: Urine 0 / 0 200 / 200 Catheter 50 / 50 Other: Meal Breakfast Percent of Meal Consumed 30% Weight 70.1 kg Blood Glucose* 120 102 Patient Weight 11/01/18 23:59 Weight 70.1 kg - General Appearance General appearance: well-developed, well-nourished, appears started age, frail EENT: ATNC, PERRL, mucous membranes moist Neck: supple Respiratory: clear Cardiology: no edema, regular rate, regular rhythm, normal S1, normal S2 Gastrointestinal: normoactive bowel sounds, no tenderness, no guarding, distended (with a +fluid wave) Integumentary: warm and dry, ecchymotic Neurologic: no focal deficit, alert and oriented x3 Musculoskeletal: no deformities, no erythema, no clubbing Psychiatric: mood/affect appropriate, cooperative Results - Lab Results 11/01/18 02:51 11/01/18 02:51 Most recent lab results Calcium 8.4 mg/dL (8.6-10.3) L 11/01/18 02:51 Phosphorus 2.9 mg/dL (2.7-4.5) 10/29/18 20:04 Magnesium 1.8 mg/dL (1.6-2.6) 10/29/18 20:04 Urine Sodium 31.1 mEq/L 10/29/18 16:13 I reviewed his labs, vitals, med list and prior progress notes and imaging. Consult Discharge Plan - Plan Referrals: Karl Gamez MD [Primary Care Provider] -
--- NOTE | 2018-11-01 12:04 | Internal Med Progress Note ---
Hospitalist Progress Note - Encounter Date of Encounter: 11/01/18 Time of Encounter: 10:00 - Subjective Interval History: No acute events overnight. Denies any headache, blurring of vision, or focal weakness/numbness. No SOB or worsening abdominal distention. Had eugene inserted overnight for presumed urinary retention but did not have any significant output. - Exam Vitals: Temp Pulse Resp BP Pulse Ox 97.9 F 80 15 108/66 99 11/01/18 11:43 11/01/18 06:38 11/01/18 04:06 11/01/18 11:43 11/01/18 04:06 Exam: General: Alert and oriented, not in acute distress. Cardiovascular:Normal S1 & S2, No JVD. Pulse regular. Lungs: clear to auscultation, no wheezes/rales Abdomen:Soft, obese abdomen. Non-tender, no rigidity. Neurological:Normal cognition and motor skills. Non-focal - Assessment and Plan (1) Hyponatremia Current Visit: Yes Status: Acute Assessment and Plan: Na stable around 125 despite the intervention for the last 2 days continue salt tab nephro consult hold off on lasix (2) DM type 2 (diabetes mellitus, type 2) Current Visit: Yes Status: Acute Assessment and Plan: Diet controlled. Continue low dose SSI and Accu-Cheks ACHS (3) Cirrhosis Current Visit: Yes Status: Chronic Assessment and Plan: not in decompensation PRN paracentesis, scheduled for this coming Thursday lasix, aldactone on hold due to hyponatremia outpatient GI follow up (4) Thrombocytopenia Current Visit: Yes Status: Chronic Assessment and Plan: related to cirrhosis as above no signs and symptoms of bleeding (5) CAD (coronary artery disease) Current Visit: No Status: Chronic Assessment and Plan: resume home meds DVT Prophylaxis: EPCD given downtrending Plt count - Time Spent with Patient Total time spent is greater than 50% in coordination of care (as documented) at patient's floor/unit and/or counseling patient: Plan of Care Discussed with: patient (discussed with nephrology) Internal Medicine: Result - Labs CBC & Chem 7: 11/01/18 02:51 11/01/18 02:51 Labs: Short CBC 11/01/18 Range/Units 02:51 WBC 5.0 (4.3-11.1) K/mcL Hgb 10.1 L (12.9-16.9) g/dL Hct 28.1 L (37.5-50.1) % Plt Count 75 L (140-400) K/mcL BMP 10/31/18 11/01/18 15:22 02:51 Sodium 125 L 125 L Potassium 4.5 4.7 Chloride 99 101 Carbon Dioxide 18 L 16 L BUN 26 H 27 H Creatinine 1.14 1.01 Glucose 150 H 121 H Calcium 8.9 8.4 L - ABG Interpretation ABG results: PT/INR, D-dimer PT 13.7 Seconds (9.4-12.1) H 10/29/18 15:53 Consult Discharge Plan - Plan Referrals: Karl Gamez MD [Primary Care Provider] - (2) DM type 2 (diabetes mellitus, type 2) Qualifiers: Diabetes mellitus intermodal dispatcher insulin use: without intermodal dispatcher use Diabetes me llitus complication status: without complication Qualified Code(s): E11.9 - Type 2 diabetes mellitus without complications (3) Cirrhosis Qualifiers: Hepatic cirrhosis type: unspecified hepatic cirrhosis Ascites presence: with ascites Qualified Code(s): K74.60 - Unspecified cirrhosis of liver; R18.8 - Other ascites (5) CAD (coronary artery disease) Qualifiers: Coronary Disease-Associated Artery/Lesion type: [place] artery [place] vs. transplanted heart: [place] heart Associated angina: angina presence unspecified Qualified Code(s): I25.10 - Atherosclerotic heart disease of [place] coronary artery without angina pectoris
--- NOTE | 2018-11-01 12:57 | Electrocardiograph Report ---
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
[2018-11-02 06:24] LABS: BUN/Creatinine Ratio 24 (6-26); Blood Urea Nitrogen 23 mg/dL (8-23); Calcium 8.5 mg/dL (8.6-10.3); Carbon Dioxide 19 mEq/L (23-29); Chloride 102 mEq/L (98-107); Glucose 145 mg/dL (70-105); Osmolality,Calculated 266 (280-300); Potassium 4.5 mEq/L (3.5-5.1); Sodium 125 mEq/L (136-145); eGFR For Non-African Americans > 60 (> 60)
[2018-11-02 06:30] LABS: Uric Acid 4.3 mg/dL (2.3-7.6)
[2018-11-02 06:37] LABS: Thyroid Stimulating Hormone 1.063 mcIU/mL (0.340-5.600)
[2018-11-02] MEDS: Aspirin Enteric Coated 81 MG Tablet PO SCH (07:46)
[2018-11-02] MEDS: Lactulose Oral Soln 20 GM/30 ML UDC PO SCH (07:47)
[2018-11-02 07:55] VITALS: BP 103/60
[2018-11-02] MEDS ORDERED: Cyanocobalamin (B-12) 1,000 MCG TABLET PO SCH (09:00)
[2018-11-02] MEDS ORDERED: Ascorbic Acid 500 MG TABLET PO SCH (09:00)
--- NOTE | 2018-11-02 10:48 | Nephrology Progress Note ---
Date of Encounter: 11/02/18 Time of Encounter: 08:40 - Assessment and Plan (1) Hyponatremia Current Visit: Yes Status: Acute Multifactorial hyponatremia with multiple risk factors of cirrhosis/ascites consistent with hypervolemic hyponatremia as well as SIADH (increased urine osmolality) One time dose of tolvaptan did not improve hyponatremia, so do not recommend any subsequent administrations with underlying liver cirrhosis. Sodium 125 today, unchanged from yesterday and only slightly increased from admission on 10/29/18 at 124. Patient reports no confusion, nausea, dizziness, malaise, fatigue, headache; in setting of asymptomatic hyponatremia we recommend conservative measures continue with fluid restriction and oral sodium chloride tablet supplementation. Continue Midodrine for hypotension. From renal perspective patient can be discharged with follow up outpatient for hyponatremia with bloodwork. Thank you for consulting [facility] (2) Metabolic acidosis Current Visit: Yes Status: Acute Non-anion gap metabolic acidosis with bicarbonate of 19 (from 21 on admission on 10/29/18), sodium of 125 (from 124 on admission on 10/29/18), chloride of 102 (f rom 98 on admission on 10/29/18) (gap of 4.0 mEq/L). Metabolic acidosis likely secondary to ascites and hyponatremia. Treatment of hyponatremia with oral sodium chloride supplementation and fluid restriction will likely resolve acidosis. (3) Cirrhosis Current Visit: Yes Status: Chronic Cirrhosis contributing to hyponatremia Qualifiers: Hepatic cirrhosis type: unspecified hepatic cirrhosis Ascites presence: with ascites Qualified Code(s): K74.60 - Unspecified cirrhosis of liver; R18.8 - Other ascites (4) History of ascites Current Visit: Yes Status: Chronic Subjective Principal diagnosis: Hyponatremia Interval history: Mr. Cruz is a pleasant 78 year old male who presents with hyponatremia and recurrent ascites secondary to liver cirrhosis with PMH of former alcoholism (quit 2 years ago according to patient). He notes that he feels better today, with PT yesterday he was able to walk across the room by himself. He reports drinking little water and eating little ice, and drinking some sprite over the course of the past day, as well as adherence to salt tablets. He denies fever, chills, nausea, vomiting, shortness of breath, cough, chest pain, palpitations, abdominal pain, constipation, diarrhea, burning on urination, blood in urine, frothy urine. Objective - Vital Signs Vital signs: Vital Signs Temp Pulse Resp BP Pulse Ox 11/02/18 07:53 97.6 F 76 16 103/60 95 11/02/18 04:29 98.0 F 84 17 109/64 97 11/02/18 00:28 98.1 F 80 17 101/56 96 11/01/18 20:55 97.8 F 77 17 96/61 97 11/01/18 15:31 98.1 F 85 104/63 11/01/18 11:43 97.9 F 108/66 Intake and Output 11/01/18 11/02/18 11/02/18 23:59 07:59 15:59 Intake Total 0 / 0 60 / 60 Output Total 425 / 425 0 / 0 Balance -425 / -425 60 / 60 Intake: Oral 0 / 0 60 / 60 Output: Urine 425 / 425 0 / 0 Other: Weight 71.5 kg Patient Weight 11/02/18 23:59 Weight 71.5 kg - General Appearance Exam: General: AAO, nontoxic, no acute distress HEENT: normocephalic, atraumatic, mucus membranes moist CV: RRR, S1 and S2 present, no murmurs, no peripheral edema, no JVD Resp: LCTAB, no rales, no wheezes, no accessory muscle use GI: soft, nontender, no guarding, distension + (with + fluid wave), bowel sounds present Neuro: A&Ox3, no focal deficits Psych: normal mood and behavior - Lab 11/01/18 02:51 11/02/18 05:47 Most recent lab results Calcium 8.5 mg/dL (8.6-10.3) L 11/02/18 05:47 Phosphorus 2.9 mg/dL (2.7-4.5) 10/29/18 20:04 Magnesium 1.8 mg/dL (1.6-2.6) 10/29/18 20:04 Urine Sodium 31.1 mEq/L 10/29/18 16:13 Consult Discharge Plan - Plan Referrals: Karl Gamez MD [Primary Care Provider] -
--- NOTE | 2018-11-02 11:47 | Discharge Summary ---
- NOTES TO OUTPATIENT PROVIDER Notes to Outpatient Provider: Patient was admitted admitted for asymptomatic hyponatremia. Was initially managed with IVF followed by salt tab, fluid restriction, and 1 dose of Samsca per nephrology. IT remained stable around 125 over the 3 day monitoring and since he is asymptomatic on it, will be discharged on salt tab and midodrine for hypotension. He will follow up with nephrology with repeat BMP in the next week or so. Continue to get PRN paracentesis for ascites. Date of Encounter: 11/02/18 Time of Encounter: 10:45 - Discharge Diagnosis (1) Hyponatremia Priority: Primary Status: Acute (2) DM type 2 (diabetes mellitus, type 2) Priority: Secondary Status: Acute Qualifiers: Diabetes mellitus clutch mechanic insulin use: without mcc use Diabetes mellitus complication status: without complication Qualified Code(s): E11.9 - Type 2 diabetes mellitus without complications (3) Cirrhosis Priority: Secondary Status: Chronic Qualifiers: Hepatic cirrhosis type: unspecified hepatic cirrhosis Ascites presence: with ascites Qualified Code(s): K74.60 - Unspecified cirrhosis of liver; R18.8 - Other ascites (4) Thrombocytopenia Priority: Secondary Status: Chronic (5) CAD (coronary artery disease) Priority: Secondary Status: Chronic Qualifiers: Coronary Disease-Associated Artery/Lesion type: [place] artery [place] vs. transplanted heart: [place] heart Associated angina: angina presence unspecified Qualified Code(s): I25.10 - Atherosclerotic heart disease of [place] coronary artery without angina pectoris Hospital course: Mr. Cruz is a 78 year old male with PMHx of cirrhosis, CAD, who was admitted for asymptomatic hyponatremia. Was initially managed with IVF followed by salt tab, fluid restriction, and 1 dose of Samsca per nephrology. IT remained stable around 125 over the 3 day monitoring and since he is asymptomatic on it, will be discharged on salt tab and midodrine for hypotension. He will follow up with nephrology with repeat BMP in the next week or so. Continue to get PRN paracentesis for ascites. Discharge discussed with: patient, nurse, network relations consultant - Time Spent with Patient Total time spent providing and/or coordinating discharge services: 33 mins - Discharge Medications Prescriptions: Midodrine [ProAmatine] 2.5 mg PO 0800,1200,1700 #60 tablet Sodium Chloride [Sodium Chloride Tab] 1 gm PO TID #90 tablet Home Medications: Pravastatin Sodium 10 mg PO DAILY 03/04/16 [History] Ascorbate Calcium [Vitamin C] 500 mg PO DAILY 01/25/18 [History] Cyanocobalamin (Vitamin B-12) [Vitamin B12] 1,000 mcg PO DAILY 10/31/18 [History] Lactulose 15 ml PO BID 10/31/18 [History] Aspirin Enteric Coated [Aspirin EC] 81 mg PO DAILY tablet. 11/02/18 [Rx] Midodrine [ProAmatine] 2.5 mg PO 0800,1200,1700 #60 tablet 11/02/18 [Rx] Sodium Chloride [Sodium Chloride Tab] 1 gm PO TID #90 tablet 11/02/18 [Rx] Allergies/Adverse Reactions: Allergy/AdvReac Type Severity Reaction Status Date / Time Iodinated Contrast- Oral and AdvReac See Verified 01/25/18 10:01 IV Dye Comments pantoprazole [From Protonix] AdvReac see comment Verified 10/22/18 11:29 Date of admission: 10/31/18 17:06 Primary care physician: Karl Gamez MD Consults: 10/29/18 20:33 Consult to Physical Therapy [CONS] Routine Comment: Evaluate, develop and implement POC Reason for Consult: Weakness Does patient have active BEDREST order?: No Is patient medically & hemodynamically stable?: Yes Patient assessed for mobility or mobilized this visit?: No OT [Consult to Occupational Therapy] [CONS] Routine Comment: Evaluate, develop and implement POC Reason for Consult: Weakness Does patient have active BEDREST order?: No Is patient medically & hemodynamically stable?: Yes Patient assessed for mobility or mobilized this visit?: No 10/29/18 20:35 Consult to Nutrition [CONS] Routine Comment: Consulting Provider: NUTRITION Reason for Dietary Consult: PO Supplementation 11/01/18 07:38 Consult to Nephrology [CONS] Routine Consulting Provider: Kidney Minda/KORY/RAMONITA/CRAITO Reason for Consult: hyponatremia Call Completed: Yes - Constitutional Vitals: Temp Pulse Resp BP Pulse Ox 97.6 F 76 16 103/60 95 11/02/18 07:53 11/02/18 07:53 11/02/18 07:53 11/02/18 07:53 11/02/18 07:53 General appearance: Present: A&O X 3, no acute distress Exam: General: Alert and oriented, not in acute distress. Cardiovascular:Normal S1 & S2, No JVD. Pulse regular. Lungs: clear to auscultation, no wheezes/rales Abdomen:Soft, obese abdomen. Non-tender, no rigidity. Neurological:Normal cognition and motor skills. Non-focal - Patient Status Disposition: Home Health Service Condition: Good Functional capacity at discharge: independent ambulation Overall status at discharge: patient is progressing back to baseline - Discharge Instructions Instructions: Diabetes Mellitus Type 2 in Adults (DC) Follow Up With: Luis Alberto Candelario DO [Partnered Physician] - Additional Instructions: Continue salt tab and midodrine BMP in 1 week and follow up with Nephrology - Diet and Activity Activity: as per physical therapy Diet: regular diet
--- NOTE | 2018-11-02 11:51 | Physician Discharge Referral ---
Home Health/Hosp Referral Info Transfer to: Home Health - Diagnosis (1) Hyponatremia Priority: Primary Status: Acute (2) DM type 2 (diabetes mellitus, type 2) Priority: Secondary Status: Acute (3) Cirrhosis Priority: Secondary Status: Chronic (4) Thrombocytopenia Priority: Secondary Status: Chronic (5) CAD (coronary artery disease) Priority: Secondary Status: Chronic - Respiratory Orders Smoking Cessation: Smoking cessation has been advised. For more information, call the [place] Tobacco Quit Line at 1-511-IHPW-NOW. - Services Needed Following services are medically necessary services: Nursing, Home Health Aide, Physical Therapy, Occupational Therapy - Transfer Medications Prescriptions: Midodrine [ProAmatine] 2.5 mg PO 0800,1200,1700 #60 tablet Sodium Chloride [Sodium Chloride Tab] 1 gm PO TID #90 tablet Home Medications: Pravastatin Sodium 10 mg PO DAILY 03/04/16 [History] Ascorbate Calcium [Vitamin C] 500 mg PO DAILY 01/25/18 [History] Cyanocobalamin (Vitamin B-12) [Vitamin B12] 1,000 mcg PO DAILY 10/31/18 [History] Lactulose 15 ml PO BID 10/31/18 [History] Aspirin Enteric Coated [Aspirin EC] 81 mg PO DAILY tablet. 11/02/18 [Rx] Midodrine [ProAmatine] 2.5 mg PO 0800,1200,1700 #60 tablet 11/02/18 [Rx] Sodium Chloride [Sodium Chloride Tab] 1 gm PO TID #90 tablet 11/02/18 [Rx] Allergies/Adverse Reactions: Allergy/AdvReac Type Severity Reaction Status Date / Time Iodinated Contrast- Oral and AdvReac See Verified 01/25/18 10:01 IV Dye Comments pantoprazole [From Protonix] AdvReac see comment Verified 10/22/18 11:29 Certification: Further, I certify that my clinical findings support that this patient is homebound (i.e. absences from home require considerable and taxing effort and are for medical reasons or christianity services or infrequently or short duration when for other reasons) because: Homebound Reason: Patient requires assistance of a person or device to safely leave home Attestation: My signature below is to certify that this patient is under my care and that I, or nurse practitioner, or a physician's assistant scientist working with me, has a [id number] encounter with this patient.
== END 2018-11-02 14:55 | disposition home health service (06) | DRG 640 ==
LOC: 2NENU 14:42 → EMEROOARM 14:42 → SUATTDRO 20:03 → 2NENU 20:48
PROVIDERS: ADMIT Internal Medicine; ATTEND Internal Medicine

== ENCOUNTER 2018-11-18 06:55 | Observation (INO) ==
--- NOTE | 2018-11-18 07:49 | Anesthesia Evaluation PreOp ---
Date of Encounter: 11/18/18 Time of Encounter: 07:47 - Past History Planned Operation: TIPS Procedure Cardiac History: HTN, Hyperlipidemia Pulmonary History: Former smoker (QUIT > 10 years ago) [employer] History: Denies Any Significant HX Other Medical History: Hepatic (Cirrhosis with ascites and varacies), Diabetes Type II, Other (Glaucoma, ANxiety/Depression, Esophageal Varacies) Anesthesia History: Past Anesthesia (Vasectomy, Cardiac Cath EGD,) Alcohol Use: rarely Drug use: none Medications and Allergies Pravastatin Sodium 10 mg PO DAILY 03/04/16 [History] Ascorbate Calcium [Vitamin C] 500 mg PO DAILY 01/25/18 [History] Cyanocobalamin (Vitamin B-12) [Vitamin B12] 1,000 mcg PO DAILY 10/31/18 [History] Lactulose 15 ml PO BID 10/31/18 [History] Aspirin Enteric Coated [Aspirin EC] 81 mg PO DAILY tablet. 11/02/18 [Rx] Midodrine [ProAmatine] 2.5 mg PO 0800,1200,1700 #60 tablet 11/02/18 [Rx] Sodium Chloride [Sodium Chloride Tab] 1 gm PO TID #90 tablet 11/02/18 [Rx] Allergy/AdvReac Type Severity Reaction Status Date / Time Iodinated Contrast- Oral and AdvReac See Verified 01/25/18 10:01 IV Dye Comments pantoprazole [From Protonix] AdvReac see comment Verified 10/22/18 11:29 - Meds/Allergy Pre-op Review Medications Reviewed: Yes Allergies Reviewed: Yes Beta Blockers on Current Med List: No Anesthesia Results - Labs Laboratory Tests 10/29/18 11/17/18 11/17/18 16:01 15:20 15:20 WBC 6.4 Hgb 11.1 L Hct 32.2 L Plt Count 103 L INR 1.3 Sodium Potassium Chloride Carbon Dioxide BUN Creatinine Hemoglobin A1c 5.9 H 11/17/18 15:20 WBC Hgb Hct Plt Count INR Sodium 127 L Potassium 4.8 Chloride 101 Carbon Dioxide 20 L BUN 21 Creatinine 1.29 Hemoglobin A1c - Imaging EKG: report reviewed (SR) Additional studies: Echocardiogram Name: Jorge Franco Nancy Date of Study: 10/28/2017 EV/EV echocardiogram Impressions: LVEF 60%. Normal LV chamber size, wall thickness and function. Mild left ventricular diastolic dysfunction. Normal right ventricular structure and function. No evidence of pulmonary hypertension. No significant valvular dysfunction. Anesthesia Exam O2 Sat Height 1.75 m Height 1.75 m Weight 78.471 kg Weight 78.471 kg O2 Sat by Pulse Oximetry 100 O2 Sat by Pulse Oximetry 100 Vital Signs Temp Pulse Resp BP Pulse Ox 98.0 F 82 18 121/82 100 11/18/18 07:26 11/18/18 07:26 11/18/18 07:26 11/18/18 07:26 11/18/18 07:26 NPO (# of Hours): > 8 Hrs Pain Scale: 0 Pain Scale Used: Numeric (1 - 10) - HEENT Pupil (Motor): Pupils equal, EOMI Mallampati: II Teeth: Edentulous Oral Opening: Greater than 3 - [employer] LOC: Oriented [employer] Motor: Normal RUE, Normal LUE, Normal RLE, Normal LLE, Normal Face [employer] Sensory: Normal: RUE, LUE, RLE, LLE, Face - Cardiac Rhythm: Regular Murmur: None JVD: No Carotid Bruit: No - Pulmonary Breath Sounds: bilateral Clear Respiratory Effort: Symmetrical Anesthesia Assess/Plan ASA Score: 4 Anesthetic Plan: General Reason for No Neuroaxial/Regional Block: Patient refusal Autologous Blood: Yes Recovery Plan: PACU
[2018-11-18] MEDS: Ringers Solution, Lactated 500 ML IVC SCH ×2 (07:52→19:42)
[2018-11-18] MEDS ORDERED: 0.9 % Sodium Chloride 500 ML ONE (08:03)
[2018-11-18] MEDS ORDERED: Heparin 1,000 UNITS/500 mL 500 ML ONE (08:03)
[2018-11-18] MEDS ORDERED: *HR* FentaNYL (PF) 100 MCG/2 ML VIAL ONE (08:28)
--- NOTE | 2018-11-18 09:31 | History & Physical Report ---
Date of Encounter: 11/18/18 Time of Encounter: 08:00 24 Hour HP Update - Instructions Instructions: If the History and Physical is less than 30 days old and was completed prior to A.M. admission and or procedure and has NOT been updated on calendar day of procedure please complete this update prior to performing procedure. - Update Patient reports changes in Medical Condition: No Changes in examination, assessment, or condition: No Changes in Medication: No Preop tests/diagnostics Reviewed: Yes Pre-Op MRSA Screen: Negative Surgery Remains Indicated: Yes Consent for Planned Operative Procedure(s) Verified: Yes - Pre-Operative Checklist Preoperative Checklist Indicated: Yes Prophylactic Antibiotic Ordered: Yes Is VTE Prophylaxis Indicated?: NO
--- NOTE | 2018-11-18 09:31 | IR Procedure Note ---
Date of procedure: 11/18/18 Consent Obtained: Written consent Timeout: Correct patient and procedure verified, Correct site verified, Time out performed, Skin prep completed Local anesthetic: Lidocaine 1% Indications: Ascites Procedure Performed: paracentesis Was there an hr assistant present: No Site/Technique: left abdomen Results/Findings: 10 liters of fluid removed Estimated blood loss (cc): 0 Complications: None; Tolerated procedure well Post Procedure Treatment Plan: observation Specimen: 10 liters of fluid
[2018-11-18] MEDS ORDERED: CeFAZolin Premix DUPLEX 2,000 MG/50 ML BAG IVPB ONE (10:15)
[2018-11-18] MEDS ORDERED: Isovue-300 50 ML VIAL IVP ONE ×2 (10:30)
[2018-11-18] MEDS ORDERED: *HR* OxyCODONE Immed Rel 5 MG TABLET PO PRN (10:34)
[2018-11-18] MEDS ORDERED: traMADol 50 MG TABLET PO PRN (10:34)
[2018-11-18] MEDS ORDERED: Naloxone 0.4 MG/ML INJ IVP PRN (10:34)
--- NOTE | 2018-11-18 10:55 | Internal Med History&Physical ---
Date of Encounter: 11/18/18 Time of Encounter: 11:30 Internal Medicine - H&P: HPI Chief complaint: Direct admit from IR s/p TIPS and paracentesis for end stage liver disease History of present illness: Mr. 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 Patient was seen then and recommended for TIPS procedure by IR which wasn't available until today. Patient has recently had betablockers and diuretics discontinued by his PCP due to hypotension. He underwent a TIPS procedure and paracentesis with removal of 10L of fluid today by IR. He tolerated the procedure well with no acute complications. He is being admitted to the ICU for overnight observation s/p TIPS Past Med Surg Social Fam HX - Past Medical History Medical history: cirrhosis, coronary artery disease, diabetes, hyperlipidemia, myocardial infarction, other Additional medical history: facial skin lesion, anemia,. WHITE COAT HYPERTENS ION. ANXIETY. DM type II (resolved). GLAUCOMA. ERECTILE DYSFUNCTION. THROMBOCYTOPENIA. MIXED HIGH LIPIDS. CAD Psychiatric history: anxiety, depression, panic disorder - Past Surgical History Surgical History: cataract, other Additional surgical history: cataracts. vasectomy. heart cath - Social History Smoking Status: Former smoker Smokeless Tobacco Status: No Alcohol use: rarely Drug use: none - Family History Mother Living Status: Hx Family Cardiac Disorders: Yes (HTN) Father Living Status: Hx Family Cancer: Yes Internal Medicine - H&P: Meds Pravastatin Sodium 10 mg PO DAILY 03/04/16 [History] Ascorbate Calcium [Vitamin C] 500 mg PO DAILY 01/25/18 [History] Cyanocobalamin (Vitamin B-12) [Vitamin B12] 1,000 mcg PO DAILY 10/31/18 [History] Lactulose 15 ml PO BID 10/31/18 [History] Aspirin Enteric Coated [Aspirin EC] 81 mg PO DAILY tablet. 11/02/18 [Rx] Midodrine [ProAmatine] 2.5 mg PO 0800,1200,1700 #60 tablet 11/02/18 [Rx] Sodium Chloride [Sodium Chloride Tab] 1 gm PO TID #90 tablet 11/02/18 [Rx] Allergy/AdvReac Type Severity Reaction Status Date / Time Iodinated Contrast- Oral and AdvReac See Verified 01/25/18 10:01 IV Dye Comments pantoprazole [From Protonix] AdvReac see comment Verified 10/22/18 11:29 All Systems PM: A 10-system review of systems was performed and is negative for pertinent fi ndings except as documented above in the HPI. - Constitutional Constitutional: fatigue, lethargy, no chills, no fever(s), no night sweats - EENT Eyes: no change in vision, no discharge, no pain, no photophobia Ears: no ear discharge, no ear pain, no tinnitus Nose, mouth and throat: no dysphagia, no nasal discharge, no neck pain, no sore throat - Cardiovascular Cardiovascular ROS IM: no chest pain, no diaphoresis, no dyspnea, no lightheadedness, no palpitations, no syncope - Respiratory Respiratory: no cough, no dyspnea, no wheezing, no excessive phlegm production - Gastrointestinal Gastrointestinal: nausea, no abdominal pain, no diarrhea, no hematemesis, no hematochezia, no melena, no vomiting - Musculoskeletal Musculoskeletal ROS IM: no numbness, no tingling - Integumentary Integumentary IM: no rash, no unusual bruising - Neurological Neurological ROS: no confusion, no convulsions, no focal weakness, no numbness, no tingling, no tremor(s) - Hematologic/Lymphatic Hematologic/Lymphatic: no easy bruising - Constitutional Vitals: Temp Pulse Resp BP Pulse Ox 98.0 F 85 18 116/63 99 11/18/18 07:46 11/18/18 10:21 11/18/18 07:46 11/18/18 10:21 11/18/18 10:21 Exam: NAD - Head Head exam: Present: atraumatic, normocephalic - Eye Eye exam: Present: PERRL, conjuntiva pink, sclera anicteric Pupils: Present: PERRL - Neck Neck exam general surgery: Present: supple, trachea midline. Absent: lymphadenopathy - Respiratory Respiratory exam: Present: CTAB. Absent: accessory muscle use, rales, rhonchi, wheezes - Cardiovascular Cardiovascular exam: Present: RRR, +S1, +S2. Absent: diastolic murmur, gallop, rubs, systolic murmur - GI/Abdominal GI/Abdominal exam: Present: normal bowel sounds, soft, no peritoneal signs. Absent: distended, tenderness Additional comments: Obese abdomen - Extremities Exam Extremities exam: Present: pedal edema, warm, radial pulses palpable and symmetrical. Absent: calf tenderness, cyanotic Additional comments: 2+ pitting edema bilaterally - Neurological Exam Neurological exam: Present: CN II-XII intact, oriented X3, no focal deficits. Absent: pronater drift, facial droop, speech deficit - Skin Skin exam: Present: dry, intact Internal Med - H&P Results - Labs CBC & Chem 7: 11/18/18 11:27 - Impressions ITS Impressions Abdomen CT 11/18/18 08:47 IMPRESSION: Cirrhosis with evidence of portal hypertension, including small to moderate ascites in the abdomen. D/ / 11/18/2018 09:28:08 Shaniqua Tse MD / Michelle Miner Interpreting Provider: Shaniqua Tse MD - Assessment and plan (1) End-stage liver disease Current Visit: Yes Status: Acute Assessment and plan: Pt has endstage liver disease with recurrent ascites and is s/p TIPS procedure and paracentesis with removal of 10L of fluid by IR He is a direct admit to the ICU from IR for observation overnight. continue cefazolin. Monitor CBC and cardiac function post TIPS. MELD Score is 23 with poor prognosis and elevated 3 month mortality. Patient has been taken off beta blockers, spironolactone and lasix by PCP due to hypotension GI consult for further recommendations for medications and discharge planning (2) Hyponatremia Current Visit: Yes Status: Acute Assessment and plan: Likely secondary to water retention from liver cirrhosis. Continue TID sodium tablets (3) CAD (coronary artery disease) Current Visit: Yes Status: Acute Assessment and plan: Continue home meds Qualifiers: Coronary Disease-Associated Artery/Lesion type: [place] artery [place] vs. transplanted heart: [place] heart Associated angina: angina presence unspecified Qualified Code(s): I25.10 - Atherosclerotic heart disease of [place] coronary artery without angina pectoris (4) DVT prophylaxis Current Visit: Yes Status: Acute Assessment and plan: SCDs - Time Spent With Patient Total time spent is greater than 50% in coordination of care (as documented) at patient's floor/unit and/or counseling patient:
--- NOTE | 2018-11-18 11:19 | IR Procedure Note ---
Date of procedure: 11/18/18 Consent Obtained: Written consent Timeout: Correct patient and procedure verified, Correct site verified, Time out performed, Skin prep completed Local anesthetic: Lidocaine 1% Indications: ascites, liver disease, esophageal varices Procedure Performed: TIPS Was there an hospital nursing assistant present: No Site/Technique: rt IJ access. Shunt from portal to hepatic vein dilated to 10mm Results/Findings: adequate flow through the shunt Estimated blood loss (cc): 4 Complications: None; Tolerated procedure well Post Procedure Treatment Plan: admit to icu for observation Specimen: none
[2018-11-18] MEDS ORDERED: Ondansetron 4 MG/2 ML VIAL IVP PRN (11:38)
[2018-11-18 11:45] LABS: Hematocrit 30.3 % (37.5-50.1); Hemoglobin 10.4 g/dL (12.9-16.9); Immature Granulocytes % 0.3 % (0-4); Lymphocytes # 0.4 K/mcL (0.6-4.6); Lymphocytes % 6.2 %; Mean Corpuscular HGB Conc 34.3 g/dL (31.6-35.5); Mean Corpuscular Hemoglobin 34.6 pg (28.0-33.3); Mean Corpuscular Volume 100.7 fL (83.0-100.0); Mean Platelet Volume 9.2 fL (9.4-12.4); Monocytes # 0.1 K/mcL (0.0-1.3); Monocytes % 1.6 %; Neutrophils # 5.3 K/mcL (1.6-8.9); Platelet Count 100 K/mcL (140-400); Red Blood Count 3.01 M/mcL (4.19-5.50); Red Cell Distribution Width 13.9 % (11.5-14.5); Segmented Neutrophils % 91.9 %
--- NOTE | 2018-11-18 11:51 | Anesthesia Evaluation Post Op ---
Date of Encounter: 11/18/18 Time of Encounter: 10:55 - Vital Signs Vital Signs: Vital Signs Temperature 98.0 F 11/18/18 07:26 Pulse Rate 82 11/18/18 07:26 Respiratory Rate 18 11/18/18 07:26 Blood Pressure 121/82 11/18/18 07:26 O2 Sat by Pulse Oximetry 100 11/18/18 07:26 Temperature 98.0 F 11/18/18 07:46 Pulse Rate 85 11/18/18 10:21 Respiratory Rate 18 11/18/18 07:46 Blood Pressure 116/63 11/18/18 10:21 O2 Sat by Pulse Oximetry 99 11/18/18 10:21 - Lungs Lungs: Clear Ascult./Percussion - Airway Airway: Non-obstructed - Cardiovascular Regular Rate - Mental Status Mental Status: Alert & Oriented, Answers Appropriately - Pain Pain Scale: 0 Pain Scale used: Numeric (1 - 10) - Nausea Vomiting Nausea Vomiting: Not Present - Hydration Hydration: NPO - Discharge PostOp Status: Transfer Patient to floor (pt transported to the ICU, VSS)
[2018-11-18 12:04] LABS: Bilirubin,Direct 0.6 mg/dL (0.0-0.2); Bilirubin,Indirect 0.9 mg/dL (0.0-1.2); Bilirubin,Total 1.5 mg/dL (0.3-1.0)
[2018-11-18 12:05] LABS: BUN/Creatinine Ratio 18 (6-26); Blood Urea Nitrogen 24 mg/dL (8-23); Calcium 9.1 mg/dL (8.6-10.3); Carbon Dioxide 19 mEq/L (23-29); Chloride 102 mEq/L (98-107); Glucose 163 mg/dL (70-105); Osmolality,Calculated 274 (280-300); Potassium 4.9 mEq/L (3.5-5.1); Sodium 128 mEq/L (136-145); eGFR For Non-African Americans 51 (> 60)
[2018-11-18] MEDS: Lactulose Oral Soln 20 GM/30 ML UDC RC SCH (19:33)
[2018-11-19 03:51] LABS: Basophils % 0.1 %; Hematocrit 29.9 % (37.5-50.1); Hemoglobin 10.4 g/dL (12.9-16.9); Immature Granulocytes % 0.5 % (0-4); Lymphocytes # 0.7 K/mcL (0.6-4.6); Lymphocytes % 5.5 %; Mean Corpuscular HGB Conc 34.8 g/dL (31.6-35.5); Mean Corpuscular Hemoglobin 34.8 pg (28.0-33.3); Mean Platelet Volume 9.7 fL (9.4-12.4); Monocytes # 0.7 K/mcL (0.0-1.3); Monocytes % 5.4 %; Neutrophils # 10.8 K/mcL (1.6-8.9); Platelet Count 101 K/mcL (140-400); Red Blood Count 2.99 M/mcL (4.19-5.50); Red Cell Distribution Width 13.8 % (11.5-14.5); Segmented Neutrophils % 88.5 %
[2018-11-19 04:10] LABS: BUN/Creatinine Ratio 21 (6-26); Blood Urea Nitrogen 24 mg/dL (8-23); Calcium 8.8 mg/dL (8.6-10.3); Carbon Dioxide 21 mEq/L (23-29); Chloride 104 mEq/L (98-107); Glucose 132 mg/dL (70-105); Magnesium 1.9 mg/dL (1.6-2.6); Osmolality,Calculated 276 (280-300); Phosphorous 3.4 mg/dL (2.7-4.5); Potassium 5.2 mEq/L (3.5-5.1); Sodium 130 mEq/L (136-145); eGFR For Non-African Americans > 60 (> 60)
[2018-11-19 04:11] LABS: Albumin 2.5 g/dL (3.5-5.7); Bilirubin,Direct 0.4 mg/dL (0.0-0.2); Bilirubin,Indirect 0.9 mg/dL (0.0-1.2); Bilirubin,Total 1.3 mg/dL (0.3-1.0); Globulin 2.6 g/dL (2.4-3.5); Total Protein 5.1 g/dL (6.4-8.9)
[2018-11-19] MEDS: Lactulose Oral Soln 20 GM/30 ML UDC RC SCH (07:24)
[2018-11-19] MEDS ORDERED: Cyanocobalamin (B-12) 1,000 MCG TABLET PO SCH (09:00)
--- NOTE | 2018-11-19 12:34 | Gastroenterology Consult Note ---
<Sunday Vazquez Swapna - Last Filed: 11/19/18 12:30> Date of Encounter: 11/19/18 Time of Encounter: 09:45 - Assessment and plan (1) Cirrhosis of liver with ascites Status: Acute Assessment and plan: Patient is s/p TIPS, completed 11/18/2018. MELD-Na 22, Child-Paez class B, DF 20.2 on 11/17/2018. Continue Lactulose, titrate for 2-4 BM per day. Patient taking Lactulose BID and having 1 BM daily, increase Lactulose to TID. Check AFP. Beta blockers, spironolactone, and Lasix discontinued by his PCP due to hypotension. Creat slightly higher than normal, up to 1.15. Will hold on restarting low-dose Lasix at this time. Follow up with Dr. Fitzgerald as scheduled on 11/24/2018. Lifestyle Changes: 1. Total abstinence from alcohol including social drinking. 2. No smoking. 3. Gradual loss of weight. 4. Drink at least 3 cups of coffee due to its antioxidant effects in the liver, it reduces risk of HCC and advance fibrosis. 5. If needed, use less than 2 g/day of Tylenol (in divided doses). 6. Vaccination for Hep A, B, Pneumococcus if not already received and yearly influenza vaccination by PCP. 7. Avoid NSAIDS as can cause kidney damage. 8. Avoid benzodiazepines and other sedatives such as anti-histamines, narcotics etc. as can cause encephalopathy or confusion. 9. Take a late carbohydrate meal supplement as it reduces glucose production from protein breakdown and thus improves nutrition. 10. In cirrhosis, statins are safe to use and also improve portal hypertension and decrease risk of HCC. 11. Screening: Hepatocellular cancer screening: [place] of liver and AFP every 6 months Qualifiers: Hepatic cirrhosis type: unspecified hepatic cirrhosis Qualified Code(s): K74.60 - Unspecified cirrhosis of liver; R18.8 - Other ascites - Time Spent With Patient Total time spent is greater than 50% in coordination of care (as documented) at patient's floor/unit and/or counseling patient: GI History of Present Illness - Data of Consult Patient: known to practice within the last 3 years Consult date: 11/19/18 Requesting Physician: Kristin Maya MD - Consult Narrative Reason for consult: s/p TIPS History of present illness: Mr. Cruz is a 78 year old male with PMHx of CAD, DM, HLD, PR, and cirrhosis with recurrent ascites requiring paracentesis approximately every 2 weeks. Patient was recently discharged from the hospital approximately 2 weeks ago for decompensated cirrhosis. TIPS procedure was recommended but was not available until yesterday. Patient had TIPS procedure and paracentesis (10L removed) completed yesterday and is currently feeling well. Patient recently had his beta blockers, spironolactone, and Lasix discontinued by his PCP due to hypotension. He was admitted to the ICU for overnight observation status post TIPS procedure. Patient states he is having one bowel movement a day and is taking his lactulose twice a day. Procedures: EGD 01/25/2018 Dr. Fitzgerald: Grade 1 esophageal varices, portal hypertensive gastropathy, repeat one year for surveillance. EGD 11/10/2017 Dr. Fitzgerald: Grade 1 esophageal varices, portal hypertensive gastropathy, nonbleeding gastric ulcers, gastritis with intestinal metaplasia, H. pylori positive. NSAIDs: ASA Anticoagulation: None Past Med Surg Social Fam HX - Past Medical History Medical history: cirrhosis, coronary artery disease, diabetes, hyperlipidemia, myocardial infarction, other Additional medical history: facial skin lesion, anemia,. WHITE COAT HYPERTENSION. ANXIETY. DM type II (resolved). GLAUCOMA. ERECTILE DYSFUNCTION. THROMBOCYTOPENIA. MIXED HIGH LIPIDS. CAD Psychiatric history: anxiety, depression, panic disorder - Past Surgical History Surgical History: cataract, other Additional surgical history: cataracts. vasectomy. heart cath - Social History Smoking Status: Former smoker Smokeless Tobacco Status: No Alcohol use: rarely Drug use: none - Family History Mother Living Status: Hx Family Cardiac Disorders: Yes (HTN) Father Living Status: Hx Family Cancer: Yes - Gastrointestinal Gastrointestinal: Present: as per HPI - Constitutional Constitutional: as per HPI - EENT Eyes: as per HPI Ears: Present: as per HPI Nose, mouth and throat: Present: as per HPI - Cardiovascular Cardiovascular ROS: Present: as per HPI - Respiratory Respiratory IM: Present: as per HPI - Genitourinary Genitourinary: Absent: change in color, Urinary frequency - Neurological ROS Neurological GI: Present: as per HPI - Hematologic/Lymphatic Hematologic/Lymphatic pediatric: Present: as per HPI - Musculoskeletal Musculoskeletal ROS GI: Present: as per HPI - Integumentary Integumentary GI: Present: as per HPI - Psychiatric ROS Psychiatric GI: Present: as per HPI - Endocrine Endocrine IM: Present: as per HPI - Constitutional Vitals: Temp Pulse Resp BP Pulse Ox 98.4 F 63 16 126/71 97 11/19/18 09:00 11/19/18 09:00 11/19/18 09:00 11/19/18 09:00 11/19/18 09:00 General appearance: Present: cooperative, A&O X 3, no acute distress, answers questions appropriately - Head Head exam: Present: atraumatic, normocephalic - Eye Eye exam: Present: normal appearance, sclera anicteric - ENT ENT exam: Present: mucous membranes moist - Neck Neck exam general surgery: Present: normal inspection, trachea midline - Respiratory Respiratory exam: Present: CTAB. Absent: rales, rhonchi - Cardiovascular Cardiovascular exam: Present: RRR, +S1, +S2 - GI/Abdominal GI/Abdominal exam: Present: distended (mild), soft, no peritoneal signs. Absent: firm, guarding, tenderness - Expanded GI/Abdominal Exam GI/Abdominal exam expanded: Present: ascites - Rectal Rectal exam: Present: deferred - Extremities Exam Extremities exam: Present: warm - Neurological Exam Neurological exam: Present: no focal deficits - Psychiatric Psychiatric exam: Present: normal affect, normal mood - Skin Skin exam: Present: dry, intact, normal color, warm Results - Labs CBC & Chem 7: 11/19/18 03:40 11/19/18 03:40 Labs: Last Result Calcium 8.8 mg/dL (8.6-10.3) 11/19/18 03:40 Entire Visit Hgb 10.4 g/dL (12.9-16.9) L 11/19/18 03:40 Hct 29.9 % (37.5-50.1) L 11/19/18 03:40 Total Bilirubin 1.3 mg/dL (0.3-1.0) H 11/19/18 03:40 AST 94 Units/L (13-39) H 11/19/18 03:40 ALT 66 Units/L (7-52) H 11/19/18 03:40 Ammonia 47 mcmol/L (16-53) 11/19/18 03:40 - Impressions Impressions Guidance Ultrasound 11/18/18 00:00 IMPRESSION: Successful placement of a Transjugular Intrahepatic Portosystemic Shunt. RECOMMENDATIONS: Baseline TIPS ultrasound with color flow doppler and velocity measurements in one week. D/ / 11/18/2018 15:27:08 Rocio Brewer MD / lgray Interpreting Provider: Rocio Brewer MD Paracentesis Ultrasound 11/18/18 00:00 IMPRESSION: Successful ultrasound guided paracentesis. D/ / Rocio Brewer MD / Rocio Brewer MD Interpreting Provider: Rocio Brewer MD Percutaneous Transhepatic Tube Insertion 11/18/18 00:00 IMPRESSION: Successful placement of a Transjugular Intrahepatic Portosystemic Shunt. RECOMMENDATIONS: Baseline TIPS ultrasound with color flow doppler and velocity measurements in one week. D/ / 11/18/2018 15:27:08 Rocio Brewer MD / lgray Interpreting Provider: Rocio Brewer MD Consult Discharge Plan - Plan Instructions: Cirrhosis (DC), Transjugular Intrahepatic Portosystemic Shunt (DC) Additional Instructions: Follow up with your PCP in 3-5 days. Follow up with GI as scheduled. Have repeat laboratory studies in 3 days. Continue home medications. Continue taking lactulose three times per day. Return to the emergency department if you develop fevers, chills, or signs of infection. Return if you have any new complaints or concerns. Referrals: Karl Gamez MD [Primary Care Provider] - 11/29/18 1:00 pm Tova Fitzgerald MD [Partnered Physician] - 11/24/18 3:20 pm Prescriptions: Lactulose 10 gm PO TID #1 bottle <Tova Fitzgerald - Last Filed: 11/19/18 19:21> Date of Encounter: 11/19/18 Time of Encounter: 13:00 - Time Spent With Patient Total time spent is greater than 50% in coordination of care (as documented) at patient's floor/unit and/or counseling patient: GI History of Present Illness - Data of Consult Requesting Physician: Kristin Maya MD - Consult Narrative History of present illness: Mr. 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, 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 11/18/18 00:00 IMPRESSION: Successful placement of a Transjugular Intrahepatic Portosystemic Shunt RECOMMENDATIONS: Baseline TIPS ultrasound with color flow doppler and velocity measurements in one week D/ / Rocio Brewer MD / Rocio Brewer MD Interpreting Provider: Rocio Brewer MD Venogram 11/18/18 00:00 IMPRESSION: Successful placement of a Transjugular Intrahepatic Portosystemic Shunt RECOMMENDATIONS: Baseline TIPS ultrasound with color flow doppler and velocity measurements in one week D/ / Rocio Brewer MD / Rocio Brewer MD Interpreting Provider: Rocio Brewer MD - Attending Attestation I have personally performed a face to face evaluation on this patient. I have reviewed and agree with the care plan. History and Exam by me shows: Pt seen. Fells better after TIPS. O/E Abd soft , mild distension. A: Pt with cirrhosis/ref ascites s/p TIPs doing well. Rec: PO lactulose. Hold diuretics. F/u GI
[2018-11-19 14:21] VITALS: BP 121/75
--- NOTE | 2018-11-19 14:21 | Physician Discharge Referral ---
- Diagnosis (1) Hyponatremia Status: Acute (2) CAD (coronary artery disease) Status: Acute (3) DVT prophylaxis Status: Acute (4) End-stage liver disease Status: Acute - Transfer Medications Home Medications: Pravastatin Sodium 10 mg PO DAILY 03/04/16 [History] Ascorbate Calcium [Vitamin C] 500 mg PO DAILY 01/25/18 [History] Cyanocobalamin (Vitamin B-12) [Vitamin B12] 2,500 mcg PO DAILY 10/31/18 [History] Lactulose 15 ml PO BID 10/31/18 [History] Aspirin Enteric Coated [Aspirin EC] 81 mg PO DAILY tablet. 11/02/18 [Rx] Midodrine [ProAmatine] 2.5 mg PO 0800,1200,1700 #60 tablet 11/02/18 [Rx] Sodium Chloride [Sodium Chloride Tab] 1 gm PO TID #90 tablet 11/02/18 [Rx] Allergies/Adverse Reactions: Allergy/AdvReac Type Severity Reaction Status Date / Time Iodinated Contrast- Oral and AdvReac See Verified 01/25/18 10:01 IV Dye Comments pantoprazole [From Protonix] AdvReac see comment Verified 10/22/18 11:29 - Respiratory Orders Smoking Cessation: Smoking cessation has been advised. For more information, call the [place] Tobacco Quit Line at 3-789-NMBW-NOW. CERTIFICATION: I certify that the transfer of the above named patient to an Extended Care Facility is necessary for the continuing treatment of the diagnosis listed. The above information is true and accurate reflection of patient's current condition. Confidential - Redisclosure prohibited without a patient's written consent.
--- NOTE | 2018-11-19 14:21 | Discharge Summary ---
<Francie Finn N - Last Filed: 11/19/18 16:47> - NOTES TO OUTPATIENT PROVIDER Notes to Outpatient Provider: This patient was admitted to the hospital for overnight monitoring after TIPS procedure. Patient was noted to have a mild hyperkalemia which was felt to be secondary to administration of lactated Ring er's. Patient was administered 50 mg of Kayexalate, and so an order for repeat BMP in 3 days. 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 transplanted heart: [place] heart Associated angina: angina presence unspecified Qualified Code(s): I25.10 - Atherosclerotic heart disease of [place] coronary artery without angina pectoris (3) End-stage liver disease Priority: Primary Status: Acute Hospital course: Mr. Cruz is a 78 year old male who was admitted to the hospital for overnight monitoring after TIPS procedure. He tolerated the procedure well, and had no sig nificant overnight events. Morning labs were significant for hyperkalemia of 5.2 and leukocytosis. Patient was administered a dose of Kayexalate and discharged with an order to repeat BMP in 3 days. Prior to discharge, patient was able to tolerate PO intake without issue and voiced no concerns or complaints. - Time Spent with Patient Total time spent providing and/or coordinating discharge services: - Discharge Medications Prescriptions: RX: Lactulose 10 gm PO TID #1 bottle Home Medications: RX: Pravastatin Sodium 10 mg PO DAILY 03/04/16 [History] RX: Ascorbate Calcium [Vitamin C] 500 mg PO DAILY 01/25/18 [History] RX: Cyanocobalamin (Vitamin B-12) [Vitamin B12] 2,500 mcg PO DAILY 10/31/18 [History] RX: Aspirin Enteric Coated [Aspirin EC] 81 mg PO DAILY tablet. 11/02/18 [Rx] RX: Midodrine [ProAmatine] 2.5 mg PO 0800,1200,1700 #60 tablet 11/02/18 [Rx] RX: Sodium Chloride [Sodium Chloride Tab] 1 gm PO TID #90 tablet 11/02/18 [Rx] RX: Lactulose 10 gm PO TID #1 bottle 11/19/18 [Rx] Allergies/Adverse Reactions: Allergy/AdvReac Type Severity Reaction Status Date / Time Iodinated Contrast- Oral and AdvReac See Verified 01/25/18 10:01 IV Dye Comments pantoprazole [From Protonix] AdvReac see comment Verified 10/22/18 11:29 Date of admission: 11/18/18 12:55 Primary care physician: Karl Gamez MD Consults: 11/18/18 10:40 Consult to Gastroenterology [CONS] Routine Consulting Provider: Gastroenterology Minda Reason for Consult: s/p TIPS Call Completed: No 11/19/18 11:14 Consult to Nutrition [CONS] Routine Comment: Consulting Provider: NUTRITION Reason for Dietary Consult: Diet Education Discharging clinician: Francie Finn Anticipated date of discharge: 11/19/18 - Constitutional Vitals: Temp Pulse Resp BP Pulse Ox 98.4 F 63 16 126/71 97 11/19/18 09:00 11/19/18 09:00 11/19/18 09:00 11/19/18 09:00 11/19/18 09:00 Exam: GENERAL: Adult male seated at bedside in no acute distress. HEENT: Atraumatic and normocephalic. CARDIOVASCULAR: Regular rate and rhythm. S1 and S2 present. No murmurs, gallops, or rubs appreciated. RESPIRATORY: Clear to auscultation bilaterally. Chest rises and falls symmetrically with respiration. No accessory muscle use noted. GASTROINTESTINAL: Abdomen is soft, nontender, nondistended. EXTREMITIES: No clubbing, cyanosis, or edema present. Patient appears to have full range of motion without restriction. SKIN: Warm, dry, and intact. NEUROLOGIC: Patient is alert and oriented 3. He is cooperative with exam and answers questions appropriately. No apparent focal deficits present. PSYCHIATRIC: Mood and affect appear appropriate. - Patient Status Disposition: Home Health Service Condition: Fair Functional capacity at discharge: independent ambulation Overall status at discharge: patient is progressing back to baseline - Ambulatory Orders Ambulatory Orders: Basic Metabolic Panel [CHEM] Time Frame: 3 Days, Location: Determined By Patient Complete Blood Count [HEME] Time Frame: 3 Days, Location: Determined By Patient - Discharge Instructions Instructions: Cirrhosis (DC), Transjugular Intrahepatic Portosystemic Shunt (DC) Follow Up With: Karl Gamez MD [Primary Care Provider] - 11/29/18 1:00 pm Tova Fitzgreald MD [Partnered Physician] - 11/24/18 3:20 pm Additional Instructions: Follow up with your PCP in 3-5 days. Follow up with GI as scheduled. Have repeat laboratory studies in 3 days. Continue home medications. Continue taking lactulose three times per day. Return to the emergency department if you develop fevers, chills, or signs of infection. Return if you have any new complaints or concerns. - Diet and Activity Activity: increase activity as tolerated - VTE Documentation of Mechanical Device: Graduated compression elastic hosiery <Kristin Maya - Last Filed: 11/24/18 08:22> Date of Encounter: 11/24/18 - Discharge Diagnosis (1) Hyponatremia Status: Acute (2) CAD (coronary artery disease) Status: Acute Qualifiers: Coronary Disease-Associated Artery/Lesion type: [place] artery [place] vs. transplanted heart: [place] heart Associated angina: angina presence unspecified Qualified Code(s): I25.10 - Atherosclerotic heart disease of [place] coronary artery without angina pectoris (3) End-stage liver disease Status: Acute Hospital course: Mr. Cruz is a 78 year old male - Time Spent with Patient Total time spent providing and/or coordinating discharge services: Date of admission: 11/18/18 11:10 Primary care physician: Karl Gamez MD Consults: 11/18/18 10:40 Consult to Gastroenterology [CONS] Routine Consulting Provider: Gastroenterology Minda Reason for Consult: s/p TIPS Call Completed: No 11/19/18 11:14 Consult to Nutrition [CONS] Routine Comment: Consulting Provider: NUTRITION Reason for Dietary Consult: Diet Education - Constitutional Vitals: Temp Pulse Resp BP Pulse Ox 97.4 F L 68 15 121/75 100 11/19/18 14:11/19/18 14:11/19/18 14:19 11/19/18 14:11/19/18 14:19 - Attending Attestation I have independently seen and examined patient. I agree to findings as stated above except as set forth below.
[2018-11-19] MEDS ORDERED: Lactulose Oral Soln 20 GM/30 ML UDC PO SCH ×2 (15:00→21:00)
--- NOTE | 2018-11-19 15:16 | Physician Discharge Referral ---
Home Health/Hosp Referral Info Transfer to: Home Health Attending Provider: Dr. Miley Maya Provider in Charge Post Discharge: PCP - Diagnosis (1) Hyponatremia Priority: Secondary Status: Acute (2) CAD (coronary artery disease) Priority: Secondary Status: Acute (3) DVT prophylaxis Priority: Secondary Status: Acute (4) End-stage liver disease Priority: Secondary Status: Acute (5) Cirrhosis of liver with ascites Priority: Primary Status: Acute - Respiratory Orders Smoking Cessation: Smoking cessation has been advised. For more information, call the [place] Tobacco Quit Line at 2-183-THKR-NOW. - Services Needed Following services are medically necessary services: Nursing, Home Health Aide, Physical Therapy, Occupational Therapy, Med Social Work - Transfer Medications Prescriptions: Lactulose 10 gm PO TID #1 bottle Home Medications: Pravastatin Sodium 10 mg PO DAILY 03/04/16 [History] Ascorbate Calcium [Vitamin C] 500 mg PO DAILY 01/25/18 [History] Cyanocobalamin (Vitamin B-12) [Vitamin B12] 2,500 mcg PO DAILY 10/31/18 [History] Aspirin Enteric Coated [Aspirin EC] 81 mg PO DAILY tablet. 11/02/18 [Rx] Midodrine [ProAmatine] 2.5 mg PO 0800,1200,1700 #60 tablet 11/02/18 [Rx] Sodium Chloride [Sodium Chloride Tab] 1 gm PO TID #90 tablet 11/02/18 [Rx] Lactulose 10 gm PO TID #1 bottle 11/19/18 [Rx] Allergies/Adverse Reactions: Allergy/AdvReac Type Severity Reaction Status Date / Time Iodinated Contrast- Oral and AdvReac See Verified 01/25/18 10:01 IV Dye Comments pantoprazole [From Protonix] AdvReac see comment Verified 10/22/18 11:29 Certification: Further, I certify that my clinical findings support that this patient is homebound (i.e. absences from home require considerable and taxing effort and are for medical reasons or sikhism services or infrequently or short duration when for other reasons) because: Homebound Reason: Patient requires assistance of a person or device to safely leave home, Leaving home requires considerable and taxing effort due to condition Attestation: My signature below is to certify that this patient is under my care and that I, or nurse practitioner, or a physician's talent assistant working with me, has a [id number] encounter with this patient.
[2018-11-19] MEDS ORDERED: Esmolol 100 MG/10 ML VIAL IVP ONE (15:46)
[2018-11-19] MEDS ORDERED: Ondansetron 4 MG/2 ML VIAL IVP ONE (15:46)
[2018-11-19] MEDS ORDERED: Lidocaine 2% Syringe 100 MG/5 ML IV ONE (15:46)
[2018-11-19] MEDS ORDERED: CEFAZOLIN IVP ONE (15:46)
[2018-11-19] MEDS ORDERED: *HR* Rocuronium Bromide 50 MG/5 ML VIAL IVC ONE (15:46)
[2018-11-19] MEDS ORDERED: *HR* Succinylcholine 200 MG/10 ML VIAL IVP ONE (15:46)
[2018-11-19] MEDS ORDERED: *HR* Phenylephrine 10 MG/ML VIAL IVC ONE (15:46)
[2018-11-19] MEDS ORDERED: *HR* Propofol 200 MG/20 ML VIAL IVP ONE (15:46)
== END 2018-11-19 15:47 | disposition home health service (06) ==
LOC: INTRAD 06:55 → ICNU 06:55 → SUATTDRO 12:55 → 3ANU 11-19 10:45
PROVIDERS: ADMIT Student in an Organized Health Care Education/Training Program; ATTEND Student in an Organized Health Care Education/Training Program

== ENCOUNTER 2019-02-01 10:20 | Observation (INO) ==
[2019-02-01] MEDS ORDERED: Ondansetron 4 MG/2 ML VIAL IVP ONE (10:27)
[2019-02-01] MEDS: 0.9 % Sodium Chloride 1,000 ML IVC SCH ×2 (10:58→18:49)
[2019-02-01 11:15] LABS: Mean Platelet Volume 8.9 fL (9.4-12.4); Monocytes % 13.7 %
[2019-02-01 11:17] LABS: Basophils % 0.3 %; Eosinophils % 0.6 %; Hematocrit 32.4 % (37.5-50.1); Immature Granulocytes % 0.3 % (0-4); Immature Platelets 1.1 % (1.1-6.1); Lymphocytes % 16.5 %; Mean Corpuscular Hemoglobin 34.9 pg (28.0-33.3); Mean Corpuscular Volume 102.9 fL (83.0-100.0); Monocytes # 0.9 K/mcL (0.0-1.3); Neutrophils # 4.3 K/mcL (1.6-8.9); Platelet Count 113 K/mcL (140-400); Red Blood Count 3.15 M/mcL (4.19-5.50); Red Cell Distribution Width 15.4 % (11.5-14.5); Segmented Neutrophils % 68.6 %
[2019-02-01 11:20] LABS: VBG HCO3 18 mEq/L (21-27); VBG PCO2 38 mmHg (41-51); VBG PH 7.29 pH Units (7.32-7.42); VBG PO2 49 mmHg (25-50)
[2019-02-01 11:25] LABS: INR 1.4; Prothrombin Time 15.4 Seconds (9.4-12.1)
[2019-02-01 11:28] LABS: Activated Partial Thrombo Time 40.8 Seconds (26.0-36.0)
[2019-02-01 11:33] LABS: Bilirubin,Urine Negative (Negative); Blood,Urine Negative (Negative); Clarity,Urine Clear (Clear); Color,Urine Yellow (Yellow); Glucose,Urine (UA) Normal (Normal); Ketones,Urine Negative (Negative); Leukocyte Esterase,Urine Negative (Negative); Nitrite,Urine Negative (Negative); PH,Urine 6.5 pH Units (5.0-8.0); Protein,Urine Negative (Neg-Trace); Specific Gravity,Urine 1.014 (1.010-1.025); Urobilinogen,Urine Normal (Normal)
[2019-02-01 11:37] LABS: Alanine Aminotransferase 45 Units/L (7-52); Albumin 2.8 g/dL (3.5-5.7); Albumin/Globulin Ratio 0.8 (1.1-2.2); Alkaline Phosphatase 137 Units/L (34-104); Aspartate Amino Transferase 56 Units/L (13-39); BUN/Creatinine Ratio 16 (6-26); Bilirubin,Direct 0.6 mg/dL (0.0-0.2); Bilirubin,Indirect 1.1 mg/dL (0.0-1.2); Bilirubin,Total 1.7 mg/dL (0.3-1.0); Blood Urea Nitrogen 14 mg/dL (8-23); Calcium 9.1 mg/dL (8.6-10.3); Carbon Dioxide 18 mEq/L (23-29); Chloride 104 mEq/L (98-107); Creatine Kinase 39 Units/L (30-223); Ethanol < 10 mg/dL (Less than 10); Globulin 3.6 g/dL (2.4-3.5); Glucose 140 mg/dL (70-105); Osmolality,Calculated 275 (280-300); Potassium 4.8 mEq/L (3.5-5.1); Sodium 131 mEq/L (136-145); Total Protein 6.4 g/dL (6.4-8.9); Troponin I < 0.03 ng/mL (< 0.04); eGFR For Non-African Americans > 60 (> 60)
[2019-02-01] MEDS ORDERED: 0.9 % Sodium Chloride 1,000 ML IVC ONE (11:41)
[2019-02-01 11:42] LABS: Amphetamine Screen,Urine Negative ng/mL (Cutoff=1000); Barbiturate Screen,Urine Negative ng/mL (Cutoff=200); Benzodiazepines Screen,Urine Negative ng/mL (Cutoff=200); Cannabinoid Screen,Urine Negative ng/mL (Cutoff = 50); Cocaine Screen,Urine Negative ng/mL (Cutoff= 300); Opiate Screen,Urine Negative ng/mL (Cutoff=300); Phencyclidine Screen,Urine Negative ng/mL (Cutoff=25)
[2019-02-01] MEDS ORDERED: Lactulose Oral Soln 20 GM/30 ML UDC RC STA (11:48)
[2019-02-01 11:50] LABS: Thyroid Stimulating Hormone 2.702 mcIU/mL (0.340-5.600)
[2019-02-01] MEDS ORDERED: Vancomycin (wt based) 1,000 MG VIAL IVPB SCH (12:00)
[2019-02-01] MEDS ORDERED: Piperacillin/Tazobactam 3.375 GM in 0.9 % Sodium Chloride Mini Bag 100 ML IVPB SCH (12:00)
[2019-02-01] MEDS ORDERED: Lactulose 200 GM, Sodium Chloride IRRigation 700 ML RC ONE (12:18)
[2019-02-01] MEDS ORDERED: Tdap (Boostrix) Vaccine 0.5 ML SYRINGE IM ONE (12:22)
--- NOTE | 2019-02-01 12:48 | Emergency Department Note ---
Disposition Clinical Impression: Hepatic encephalopathy Altered mental status Qualifiers: Altered mental status type: unspecified Qualified Code(s): R41.82 - Altered me ntal status, unspecified Pneumonia Qualifiers: Pneumonia type: due to unspecified organism Laterality: left Lung location: lower lobe of lung Qualified Code(s): J18.1 - Lobar pneumonia, unspecified organism Disposition: Admitted As Inpatient Condition: Fair Referrals: NONE,PCP [Primary Care Provider] - Time of Disposition: 13:31 Fall HPI - General Chief Complaint: ED Fall Stated Complaint: AMS/possible stroke Time Seen by Provider: 02/01/19 10:24 Source: EMS Mode of arrival: EMS Limitations: altered mental status Nursing Notes Reviewed: Yes Vital Signs Reviewed: Yes - History of Present Illness HPI Narrative: Patient presents emergency room by EMS for evaluation of altered mentation and a fall at approximately 3 AM last night. Family transported the patient secondary to persistent confusion and history of hepatic encephalopathy. Onset (ago): hour(s) Fall From: standing Fall Witnessed: no Place Fall Occurred: home Loss of Consciousness: unsure Prolonged Down Time?: unclear Context: tripped/slipped Location of injury: head Location of injury - extremities: Left: elbow Severity: moderate Severity scale (1-10): 6 Quality: aching Associated symptoms (after fall): Reports: other - Related Data Home Medications Medication Instructions Recorded Confirmed Ascorbate Calcium [Vitamin C] 500 mg PO DAILY 01/25/18 01/24/19 Cyanocobalamin (Vitamin B-12) 2,500 mcg PO DAILY 10/31/18 01/24/19 [Vitamin B12] Potassium Chloride [K-Tab ER] 40 meq PO BID 12/24/18 01/24/19 Pravastatin Sodium 10 mg PO DAILY 12/24/18 01/24/19 Magnesium Oxide [Magnesium] 400 mg PO BID 01/24/19 01/24/19 Midodrine [ProAmatine] 5 mg PO TID 01/24/19 01/24/19 Spironolactone 25 mg PO QPM 01/24/19 01/24/19 Spironolactone [Aldactone] 50 mg PO QAM 01/24/19 01/24/19 Previous Rx's Medication Instructions Recorded Aspirin Enteric Coated [Aspirin EC] 81 mg PO DAILY tablet. 11/02/18 Sodium Chloride [Sodium Chloride 1 gm PO TID #90 tablet 11/02/18 Tab] Furosemide [Lasix] 40 mg PO BID #60 tab 12/26/18 Lactulose 15 gm PO TID #90 udc 12/26/18 Rifaximin [Xifaxan] 550 mg PO BID 30 Days #60 tablet 01/24/19 Lactulose 20 gm PO BID 30 Days #60 solution 01/25/19 Allergies Allergy/AdvReac Type Severity Reaction Status Date / Time Iodinated Contrast- Oral and AdvReac See Verified 01/24/19 14:31 IV Dye Comments pantoprazole [From Protonix] AdvReac see comment Verified 01/24/19 14:31 All systems ED: reviewed and negative except as stated. Review of Systems: As Per HPI Limitations: ROS unobtainable due to patients medical condition Constitutional: Denies: fever, chills, weakness Cardiovascular: Denies: chest pain, palpitations, dyspnea on exertion Respiratory: Denies: cough, dyspnea Gastrointestinal: Reports: nausea, vomiting. Denies: abdominal pain, diarrhea, constipation Genitourinary: Denies: urgency, dysuria Musculoskeletal: Denies: back pain Integumentary: Denies: rash Neurological: Reports: confusion. Denies: weakness, numbness Psychiatric: Denies: anxiety, depression Endocrine: Denies: fatigue Fall PMH - Past Medical History Medical history: Reports: cirrhosis, coronary artery disease, diabetes, hyperlipidemia, myocardial infarction, other Surgical history: Reports: cataract, other Psychiatric history: Reports: anxiety, depression, panic disorder - Social History Smoking Status: Former smoker Alcohol use: Reports: none Drug use: Reports: none Physical Exam - General Limitations: other General appearance: lethargic - Head Head exam: atraumatic, normocephalic, normal inspection - Eye Eye exam: Present: normal appearance, PERRL, EOMI - ENT ENT exam: normal exam, normal oropharynx, mucous membranes moist - Neck Neck exam: Present: normal inspection, full ROM, trachea midline - Chest Chest inspection: Present: normal inspection, symmetric chest wall rise - Respiratory Respiratory exam: Present: normal lung sounds bilaterally - Cardiovascular Cardiovascular exam: Present: regular rate, normal rhythm, normal heart sounds - Abdominal Exam Abdominal exam: Present: soft, Non-Tender, normal bowel sounds. Absent: tenderness, distention, guarding, rebound, rigidity - Extremities Exam Extremities exam: Present: normal inspection, full ROM, normal capillary refill. Absent: tenderness - Back Exam Back exam: Present: normal inspection, full ROM. Absent: tenderness, CVA tenderness (R), CVA tenderness (L) - Neurological Exam Neurological exam: Present: other - Skin Skin exam: Present: warm, dry, intact, normal color Course Course Narrative: Patient seen and examined the time of arrival by EMS. Patient presents here today for evaluation of altered mentation and a fall at home. Patient was up going to the bathroom in the middle the night secondary to his chronic diarrhea from lactulose. Patient fell with unknown etiology to the fall. The said he struck his head but did not lose consciousness. He went back to bed and then woke up this morning was persistently worse with his confusion. is concerned about multiple emergency room for evaluation. Of note, the patient was seen on January 22 for similar issue and was admitted at that time. Patient will have detailed workup completed this point was CT imaging of the head and the neck along with chest x-ray EKG CBC chemistry troponin liver function testing lipase urinalysis ammonia level and CPK. Concern is noted for hepatic encephalopathy versus traumatic injury including a bleed. IV access was obtain ed by EMS and transported to the patient will be directly sent down to the CT scanner for evaluation. Disposition pending full workup and treatment course. Physical exam shows an abrasion over the left elbow. Tetanus is not up-to-date according to the family. Head is otherwise atraumatic. Pupils are equal and reactive. Patient does not isolate pain specifically but is protecting his airway at this time. Oropharynx is patent. Trachea is midline. Lungs have intermittent coarse crackles noted on exam. Heart is regular. Abdomen is soft no pulsatile masses or lesions. No tenderness noted on palpation. Extremities otherwise normal with no gross deformity or injuries to the bilateral shoulders elbows or wrists. No deformity to the pelvis and hips or knees. Disposition will most likely be admission wants definitive management and evaluation have been established. Patient is otherwise stable at this time with a Ventimask in place. - Reevaluation(s) Reevaluation #1: 6 patient ammonia level is 220. Patient will be given rectal lactulose secondary to the concern for aspiration. CT imaging of the head and cervical spine are unremarkable for acute bony abnormality or fracture. Chest x-ray does show possible left lower lobe pneumonia and infiltrate. CT the abdomen will be added on now the patient is clinically stable. Blood pressure and pulse ox of stabilized with interventions here. Patient will monitor closely. CT pending. Lactic acid is 5.3 which is mostly secondary to the elevated ammonia level versus the patient's most recent fall. Patient will be monitored closely. Fluids will be given blood cultures been ordered and anabiotic regiment has been started for aspiration concern in consideration on chest x-ray. Patient only meets sepsis criteria at this point secondary to the known infection elevated lactic acid. Disposition will be admission and definitive management has been established. CT imaging of the abdomen is unremarkable this point. Patient will be admitted for what appears to be hepatic encephalopathy secondary to elevated ammonia level as well as possible aspiration pneumonia and elevated lactic acid. Fluids have been started. Patient is otherwise stable. Hospitals will be patient this time for admission process. Rectal lactulose has been given. Time: 13:06 Vital Signs Temperature 97.7 F 02/01/19 10:28 Pulse Rate 90 02/01/19 10:28 Respiratory Rate 27 02/01/19 10:28 Blood Pressure 130/74 02/01/19 10:28 O2 Sat by Pulse Oximetry 99 02/01/19 10:28 Temperature 97.7 F 02/01/19 10:28 Pulse Rate 89 02/01/19 11:54 Respiratory Rate 27 02/01/19 10:28 Blood Pressure 121/80 02/01/19 11:54 O2 Sat by Pulse Oximetry 100 02/01/19 11:54 Oxygen Delivery Oxygen Delivery Oximizer Fall - MDM Narrative Medical decision making narrative: Fall, confusion, elevated ammonia, hepatic encephalopathy - Medical Records Medical records reviewed: Yes I reviewed the patient's medical records. - Lab Data Lab results reviewed: Yes I reviewed the patient's lab results. Result diagrams: 02/01/19 11:03 02/01/19 11:03 Lab Results 02/01/19 02/01/19 02/01/19 Range/Units 11:03 11:03 11:03 WBC 6.3 (4.3-11.1) K/mcL RBC 3.15 L (4.19-5.50) M/mcL Hgb 11.0 L (12.9-16.9) g/dL Hct 32.4 L (37.5-50.1) % MCV 102.9 H (83.0-100.0) fL MCH 34.9 H (28.0-33.3) pg MCHC 34.0 (31.6-35.5) g/dL RDW 15.4 H (11.5-14.5) % Plt Count 113 L (140-400) K/mcL MPV 8.9 L (9.4-12.4) fL Immature Gran % 0.3 (0-4) % Seg Neutrophils % 68.6 % Lymphocytes % 16.5 % Monocytes % 13.7 % Eosinophils % 0.6 % Basophils % 0.3 % Neutrophils # 4.3 (1.6-8.9) K/mcL Lymphocytes # 1.0 (0.6-4.6) K/mcL Monocytes # 0.9 (0.0-1.3) K/mcL Eosinophils # 0.0 (0.0-0.6) K/mcL Basophils # 0.0 (0.0-0.2) K/mcL Immature Plt Fraction 1.1 (1.1-6.1) % PT 15.4 H (9.4-12.1) Seconds INR 1.4 APTT 40.8 H (26.0-36.0) Seconds VBG pH (7.32-7.42) pH Units VBG pCO2 (41-51) mmHg VBG pO2 (25-50) mmHg VBG HCO3 (21-27) mEq/L Sodium 131 L (136-145) mEq/L Potassium 4.8 (3.5-5.1) mEq/L Chloride 104 (98-107) mEq/L Carbon Dioxide 18 L (23-29) mEq/L BUN 14 (8-23) mg/dL Creatinine 0.85 (0.70-1.30) mg/dL Est GFR ( Amer) > 60 (> 60) Est GFR (Non-Af Amer) > 60 (> 60) BUN/Creatinine Ratio 16 (6-26) Glucose 140 H (70-105) mg/dL Calculated Osmolality 275 L (280-300) Lactic Acid (0.5-2.2) mmol/L Calcium 9.1 (8.6-10.3) mg/dL Total Bilirubin 1.7 H (0.3-1.0) mg/dL Direct Bilirubin 0.6 H (0.0-0.2) mg/dL Indirect Bilirubin 1.1 (0.0-1.2) mg/dL AST 56 H (13-39) Units/L ALT 45 (7-52) Units/L Alkaline Phosphatase 137 H (34-104) Units/L Ammonia (16-53) mcmol/L Creatine Kinase 39 (30-223) Units/L Troponin I < 0.03 (< 0.04) ng/mL Serum Total Protein 6.4 (6.4-8.9) g/dL Albumin 2.8 L (3.5-5.7) g/dL Globulin 3.6 H (2.4-3.5) g/dL Albumin/Globulin Ratio 0.8 L (1.1-2.2) TSH 2.702 (0.340-5.600) mcIU/mL Urine Color (Yellow) Urine Clarity (Clear) Urine pH (5.0-8.0) pH Units Ur Specific [place] (1.010-1.025) Urine Protein (Neg-Trace) mg/dL Urine Glucose (UA) (Normal) mg/dL Urine Ketones (Negative) mg/dL Urine Blood (Negative) Urine Nitrite (Negative) Urine Bilirubin (Negative) Urine Urobilinogen (Normal) mg/dL Ur Leukocyte Esterase (Negative) Ur Culture Indicated? (NO) Urine Opiates Screen (Uuujlo=468) ng/mL Ur Barbiturates Screen (Jyuhvf=457) ng/mL Ur Phencyclidine Scrn (Cutoff=25) ng/mL Ur Amphetamines Screen (Jyjxbu=0111) ng/mL U Benzodiazepines Scrn (Ywlxej=766) ng/mL Urine Cocaine Screen (Cutoff= 300) ng/mL U Marijuana (THC) Screen (Cutoff = 50) ng/mL Ur Drug Screen Interp Ethyl Alcohol < 10 (Less than 10) mg/dL 02/01/19 02/01/19 02/01/19 Range/Units 11:03 11:03 11:16 WBC (4.3-11.1) K/mcL RBC (4.19-5.50) M/mcL Hgb (12.9-16.9) g/dL Hct (37.5-50.1) % MCV (83.0-100.0) fL MCH (28.0-33.3) pg MCHC (31.6-35.5) g/dL RDW (11.5-14.5) % Plt Count (140-400) K/mcL MPV (9.4-12.4) fL Immature Gran % (0-4) % Seg Neutrophils % % Lymphocytes % % Monocytes % % Eosinophils % % Basophils % % Neutrophils # (1.6-8.9) K/mcL Lymphocytes # (0.6-4.6) K/mcL Monocytes # (0.0-1.3) K/mcL Eosinophils # (0.0-0.6) K/mcL Basophils # (0.0-0.2) K/mcL Immature Plt Fraction (1.1-6.1) % PT (9.4-12.1) Seconds INR APTT (26.0-36.0) Seconds VBG pH 7.29 L (7.32-7.42) pH Units VBG pCO2 38 L (41-51) mmHg VBG pO2 49 (25-50) mmHg VBG HCO3 18 L (21-27) mEq/L Sodium (136-145) mEq/L Potassium (3.5-5.1) mEq/L Chloride (98-107) mEq/L Carbon Dioxide (23-29) mEq/L BUN (8-23) mg/dL Creatinine (0.70-1.30) mg/dL Est GFR ( Amer) (> 60) Est GFR (Non-Af Amer) (> 60) BUN/Creatinine Ratio (6-26) Glucose (70-105) mg/dL Calculated Osmolality (280-300) Lactic Acid 5.3 H* (0.5-2.2) mmol/L Calcium (8.6-10.3) mg/dL Total Bilirubin (0.3-1.0) mg/dL Direct Bilirubin (0.0-0.2) mg/dL Indirect Bilirubin (0.0-1.2) mg/dL AST (13-39) Units/L ALT (7-52) Units/L Alkaline Phosphatase (34-104) Units/L Ammonia 220 H (16-53) mcmol/L Creatine Kinase (30-223) Units/L Troponin I (< 0.04) ng/mL Serum Total Protein (6.4-8.9) g/dL Albumin (3.5-5.7) g/dL Globulin (2.4-3.5) g/dL Albumin/Globulin Ratio (1.1-2.2) TSH (0.340-5.600) mcIU/mL Urine Color (Yellow) Urine Clarity (Clear) Urine pH (5.0-8.0) pH Units Ur Specific [place] (1.010-1.025) Urine Protein (Neg-Trace) mg/dL Urine Glucose (UA) (Normal) mg/dL Urine Ketones (Negative) mg/dL Urine Blood (Negative) Urine Nitrite (Negative) Urine Bilirubin (Negative) Urine Urobilinogen (Normal) mg/dL Ur Leukocyte Esterase (Negative) Ur Culture Indicated? (NO) Urine Opiates Screen (Oipriy=405) ng/mL Ur Barbiturates Screen (Hczlfu=165) ng/mL Ur Phencyclidine Scrn (Cutoff=25) ng/mL Ur Amphetamines Screen (Yjkbez=3909) ng/mL U Benzodiazepines Scrn (Jewlvc=994) ng/mL Urine Cocaine Screen (Cutoff= 300) ng/mL U Marijuana (THC) Screen (Cutoff = 50) ng/mL Ur Drug Screen Interp Ethyl Alcohol (Less than 10) mg/dL 02/01/19 02/01/19 Range/Units 11:27 11:27 WBC (4.3-11.1) K/mcL RBC (4.19-5.50) M/mcL Hgb (12.9-16.9) g/dL Hct (37.5-50.1) % MCV (83.0-100.0) fL MCH (28.0-33.3) pg MCHC (31.6-35.5) g/dL RDW (11.5-14.5) % Plt Count (140-400) K/mcL MPV (9.4-12.4) fL Immature Gran % (0-4) % Seg Neutrophils % % Lymphocytes % % Monocytes % % Eosinophils % % Basophils % % Neutrophils # (1.6-8.9) K/mcL Lymphocytes # (0.6-4.6) K/mcL Monocytes # (0.0-1.3) K/mcL Eosinophils # (0.0-0.6) K/mcL Basophils # (0.0-0.2) K/mcL Immature Plt Fraction (1.1-6.1) % PT (9.4-12.1) Seconds INR APTT (26.0-36.0) Seconds VBG pH (7.32-7.42) pH Units VBG pCO2 (41-51) mmHg VBG pO2 (25-50) mmHg VBG HCO3 (21-27) mEq/L Sodium (136-145) mEq/L Potassium (3.5-5.1) mEq/L Chloride (98-107) mEq/L Carbon Dioxide (23-29) mEq/L BUN (8-23) mg/dL Creatinine (0.70-1.30) mg/dL Est GFR ( Amer) (> 60) Est GFR (Non-Af Amer) (> 60) BUN/Creatinine Ratio (6-26) Glucose (70-105) mg/dL Calculated Osmolality (280-300) Lactic Acid (0.5-2.2) mmol/L Calcium (8.6-10.3) mg/dL Total Bilirubin (0.3-1.0) mg/dL Direct Bilirubin (0.0-0.2) mg/dL Indirect Bilirubin (0.0-1.2) mg/dL AST (13-39) Units/L ALT (7-52) Units/L Alkaline Phosphatase (34-104) Units/L Ammonia (16-53) mcmol/L Creatine Kinase (30-223) Units/L Troponin I (< 0.04) ng/mL Serum Total Protein (6.4-8.9) g/dL Albumin (3.5-5.7) g/dL Globulin (2.4-3.5) g/dL Albumin/Globulin Ratio (1.1-2.2) TSH (0.340-5.600) mcIU/mL Urine Color Yellow (Yellow) Urine Clarity Clear (Clear) Urine pH 6.5 (5.0-8.0) pH Units Ur Specific [place] 1.014 (1.010-1.025) Urine Protein Negative (Neg-Trace) mg/dL Urine Glucose (UA) Normal (Normal) mg/dL Urine Ketones Negative (Negative) mg/dL Urine Blood Negative (Negative) Urine Nitrite Negative (Negative) Urine Bilirubin Negative (Negative) Urine Urobilinogen Normal (Normal) mg/dL Ur Leukocyte Esterase Negative (Negative) Ur Culture Indicated? NO (NO) Urine Opiates Screen Negative (Dteguu=970) ng/mL Ur Barbiturates Screen Negative (Xzlgli=739) ng/mL Ur Phencyclidine Scrn Negative (Cutoff=25) ng/mL Ur Amphetamines Screen Negative (Rfjqod=7712) ng/mL U Benzodiazepines Scrn Negative (Gkykyc=910) ng/mL Urine Cocaine Screen Negative (Cutoff= 300) ng/mL U Marijuana (THC) Screen Negative (Cutoff = 50) ng/mL Ur Drug Screen Interp See Below Ethyl Alcohol (Less than 10) mg/dL - Radiology Data Radiology results reviewed: Yes I reviewed the patient's radiology results. CT imaging of the head and cervical spine and abdomen are unremarkable at this point. Chest x-ray shows possible left lower lobe aspiration pneumonia - EKG Data EKG attestation: Yes I reviewed and interpreted this EKG. EKG results narrative: EKG shows sinus rhythm. Heart rate of 87. DC interval 154. QRS duration 93. QTC of 456. [place] appears to be normal. No visible signs of ST segment elevation or abnormality. No acute signs of WPW Brugada syndrome. No acute signs of hyperacute T waves. Previous EKG from 01/22/19 was reviewed and shows no acute abnormalities or changes. Critical Care Time Critical Care Time: Yes Total Critical Care Time: 60 Attestation: Critical care performed: Time is exclusive of separately billable procedures. Time includes: direct patient care, patient reassessment, coordination of patient care, interpretation of data (laboratory data, radiology data, and respiratory data), review of patient's medical records, medical consultation and documentation of patient care. Procedures included in critical care time: Procedures excluded from critical care time:
--- NOTE | 2019-02-01 14:02 | Internal Med History&Physical ---
Date of Encounter: 02/01/19 Time of Encounter: 13:45 Internal Medicine - H&P: HPI Chief complaint: Hepatic Encephalopathy Admitted From: Emergency Dept History of present illness: Jorge Cruz is a 79 M w hx severe cirrhosis s/p TIPS, CAD, who p/w confusion and a fall. History obtained via chart review as pt confused and repeating words at time of my interview, and no family present. Per documentation, he was ambulating to bathroom last night when he fell to the ground. Very few other details available. When I ask the patient, he denies any abd pain, N/V, diarrhea, CP or SOB, no vision changes, no change in urination. He does endorse cough, and upon direct questioning, says he chokes often and has had some trouble lately eating/drinking. He is unsure if he's been taking his lactulose. Of note, he was recently admitted two weeks ago for hepatic encephalopathy, ammonia at that time was 130, improved in 2 days with lactulose. In the ED, pt vitals unremarkable. Labs remarkable for lactic acid 5.3, VBG pH 7.29, Na 131, CO2 18, Ammonia 220, Tbili 1.7, albumin 2.8, INR 1.4, Plt 113. CT head unremarkable. CXR showing LLL atelectasis or infiltrate, and with confusion and lactic acidosis, checked blood cultures, gave empiric Vanc and Zosyn along with fluid bolus, rectal lactulose, and admitted. Past medical, surgical, social, and family histories reviewed and updated as below. Past Med Surg Social Fam HX - Past Medical History Medical history: cirrhosis, coronary artery disease, diabetes, hyperlipidemia, myocardial infarction, other Additional medical history: facial skin lesion, anemia,. WHITE COAT HYPERTENSION. ANXIETY. DM type II (resolved). GLAUCOMA. ERECTILE DYSFUNCTION. THROMBOCYTOPENIA. MIXED HIGH LIPIDS. CAD Psychiatric history: anxiety, depression, panic disorder - Past Surgical History Surgical History: cataract, other Additional surgical history: stent in liver - Social History Smoking Status: Former smoker Smokeless Tobacco Status: No Alcohol use: none Drug use: none - Family History Mother Living Status: Hx Family Cardiac Disorders: Yes (HTN) Father Living Status: Hx Family Cancer: Yes Internal Medicine - H&P: Meds Ascorbate Calcium [Vitamin C] 500 mg PO DAILY 04/09/18 [History] Cyanocobalamin (Vitamin B-12) [Vitamin B12] 1,000 mcg PO DAILY 10/31/18 [History] Aspirin Enteric Coated [Aspirin EC] 81 mg PO DAILY tablet. 11/02/18 [Rx] Sodium Chloride [Sodium Chloride Tab] 1 gm PO TID #90 tablet 11/02/18 [Rx] Potassium Chloride [K-Tab ER] 40 meq PO BID 12/24/18 [History] Pravastatin Sodium 10 mg PO DAILY 12/24/18 [History] Magnesium Oxide [Magnesium] 400 mg PO BID 01/24/19 [History] Midodrine [ProAmatine] 5 mg PO TID 01/24/19 [History] Spironolactone 25 mg PO QPM 01/24/19 [History] Spironolactone [Aldactone] 50 mg PO QAM 01/24/19 [History] Furosemide [Lasix] 20 mg PO QPM 02/01/19 [History] Furosemide [Lasix] 40 mg PO QAM 02/01/19 [History] Lactulose 10 gm PO TID 02/01/19 [History] Allergy/AdvReac Type Severity Reaction Status Date / Time Iodinated Contrast- Oral and AdvReac See Verified 01/24/19 14:31 IV Dye Comments pantoprazole [From Protonix] AdvReac see comment Verified 01/24/19 14:31 All Systems PM: A 10-system review of systems was performed and is negative for pertinent findings except as documented above in the HPI. - Constitutional Vitals: Temp Pulse Resp BP Pulse Ox 97.7 F 89 27 121/80 100 02/01/19 10:28 02/01/19 11:54 02/01/19 10:28 02/01/19 11:54 02/01/19 11:54 Exam: General: NAD, decent eye contact, chronically ill appearing Head: Atraumatic, normocephalic. Face symmetric Eyes: EOMI, sclerae anicteric ENT: Mucous membranes dry. Trachea midline. Thoracic: No visible chest wall deformities. Does have bibasilar rhonchi Cardio: Normal S1 and S2, regular rhythm, borderline tachycardia Abdomen: Soft, nontender, nondistended. Bowel sounds present Extremities: Warm, well perfused. DP pulses 2+ b/l. Does have 1+ pitting edema to b/l knee Skin: Intact. No rashes, bruises, or ulcers noted Neuro: Awakes to voice, oriented to person only. Poor memory and concentration. Speech slow but fluent. CN II-XII grossly intact. Strength 5/5 in b/l UE and LE. Internal Med - H&P Results - Labs CBC & Chem 7: 02/01/19 11:03 02/01/19 11:03 Labs: Short CBC 02/01/19 Range/Units 11:03 WBC 6.3 (4.3-11.1) K/mcL Hgb 11.0 L (12.9-16.9) g/dL Hct 32.4 L (37.5-50.1) % Plt Count 113 L (140-400) K/mcL Neutrophils # 4.3 (1.6-8.9) K/mcL BMP 02/01/19 11:03 Sodium 131 L Potassium 4.8 Chloride 104 Carbon Dioxide 18 L BUN 14 Creatinine 0.85 Glucose 140 H Calcium 9.1 Cardiac Enzymes 02/01/19 Range/Units 11:03 Troponin I < 0.03 (< 0.04) ng/mL Liver Function 02/01/19 Range/Units 11:03 Total Bilirubin 1.7 H (0.3-1.0) mg/dL Direct Bilirubin 0.6 H (0.0-0.2) mg/dL AST 56 H (13-39) Units/L ALT 45 (7-52) Units/L Alkaline Phosphatase 137 H (34-104) Units/L Albumin 2.8 L (3.5-5.7) g/dL Urine 02/01/19 Range/Units 11:27 Urine Color Yellow (Yellow) Urine Clarity Clear (Clear) Urine pH 6.5 (5.0-8.0) pH Units Ur Specific [place] 1.014 (1.010-1.025) Urine Protein Negative (Neg-Trace) mg/dL Urine Glucose (UA) Normal (Normal) mg/dL - ABG Interpretation ABG results: 02/01/19 11:16 VBG pH 7.29 L VBG pCO2 38 L VBG pO2 49 VBG HCO3 18 L - Impressions ITS Impressions Cervical Spine CT 02/01/19 10:26 IMPRESSION: No acute abnormality of the cervical spine. D/ / Matt Finley MD / Matt Finley MD Interpreting Provider: Matt Finley MD Chest X-Ray 02/01/19 10:26 IMPRESSION: Left lower lobe atelectasis or infiltrate. D/ / 02/01/2019 11:22:52 Ton Ngo MD / [email or web address] Interpreting Provider: Ton Ngo MD Head CT 02/01/19 10:26 IMPRESSION: 1. No acute intracranial abnormality. 2. Diffuse cerebral atrophy with chronic small vessel ischemic disease. D/ / Juan Francisco Dial MD / Juan Francisco Dial MD Interpreting Provider: Juan Francisco Dial MD Abdomen/Pelvis CT 02/01/19 12:04 IMPRESSION: 1. No acute process demonstrated 2. Significant interval decrease in amount of ascites status post TIPS shunt placement D/ / Shaw Adorno MD / Shaw Adorno MD Interpreting Provider: Shaw Adorno MD - Summary of Assessment and Plan Summary of Assessment and Plan: Jorge Cruz is a 79 M w hx severe cirrhosis s/p TIPS, CAD, who p/w confusion and a fall, found to have ammonia 220, lactic acid 5.3 w vbg pH 7.29, and CXR with possible LLL infiltrate, consistent with hepatic encephalopathy complicated by possible aspiration pneumonia causing lactic acidosis. Acute encephalopathy: multifactorial, has hepatic encephalopathy w ammonia 220, also metabolic encephalopathy from lactic acidosis - sundowning precautions - treat underlying cause as below Decompensated Cirrhosis: has portal HTN s/p TIPS c/b thrombocytopenia, hyponatremia, coagulopathy, and direct hyperbilirubinemia - daily MELD labs - HE: increase home lactulose from 10 tid to 20 qid, initiate rifaximin - Ascites: holding home furosemide 40/20 bid and nolberto 50/25 bid given lactic acidosis - home midodrine 5 tid prn hypotension, home salt tabs - GI consultation Aspiration pneumonia: questionable as CXR could represent atelectasis, but with confusion and lactic acidosis and LLL possible infiltrate will treat presumptively - Unasyn 3g q6h - speech/swallow eval Lactic acidosis: lactate 5.3 and vbg pH 7.29 on admit, given NS 1L in ED - trend lactate, VBG - fluid bolus prn Severe sepsis: LLL infiltrate concerning for possible aspiration given encephalopathy. UA wnl. - BCx x2 pending - empiric abx as above CAD: home ASA, statin Chronic hypokalemia: likely 2/2 diuresis, however here is borderline hy perkalemic at 4.8 and will hold PO supplementation PPx: SCDs FEN: cardiac 1.5L, no MIVF Lines: PIV Consults: GI Code: Full Dispo: patient requires inpatient eval and management at this time. Anticipate 2-3 days. Need to address goals of care and would likely benefit from Palliative consultation. Will also possibly need discussion of SNF/ECF and will consult YONI.
[2019-02-01] MEDS ORDERED: Acetaminophen 325 MG TABLET PO PRN (14:07)
[2019-02-01] MEDS ORDERED: Naloxone 0.4 MG/ML INJ IVP PRN (14:07)
[2019-02-01] MEDS ORDERED: Ondansetron 4 MG/2 ML VIAL IVP PRN (14:07)
[2019-02-01 16:09] LABS: VBG HCO3 15 mEq/L (21-27); VBG PCO2 23 mmHg (41-51); VBG PH 7.42 pH Units (7.32-7.42); VBG PO2 159 mmHg (25-50)
[2019-02-01] MEDS ORDERED: Ampicillin/Sulbactam 3,000 MG in 0.9 % Sodium Chloride Mini Bag 100 ML IVPB SCH (18:00)
[2019-02-01] MEDS: Ampicillin/Sulbactam 3,000 MG in 0.9 % Sodium Chloride Mini Bag 100 ML IVPB SCH ×2 (18:03→23:38)
[2019-02-01] MEDS: Lactulose Oral Soln 20 GM/30 ML UDC PO SCH ×2 (18:03→21:49)
[2019-02-02 05:41] LABS: Hematocrit 29.8 % (37.5-50.1); Hemoglobin 10.3 g/dL (12.9-16.9); Immature Platelets 1.2 % (1.1-6.1); Mean Corpuscular HGB Conc 34.6 g/dL (31.6-35.5); Mean Corpuscular Volume 101.4 fL (83.0-100.0); Mean Platelet Volume 9.1 fL (9.4-12.4); Red Blood Count 2.94 M/mcL (4.19-5.50); Red Cell Distribution Width 15.4 % (11.5-14.5)
[2019-02-02 05:45] LABS: INR 1.5; Prothrombin Time 16.4 Seconds (9.4-12.1)
[2019-02-02 06:02] LABS: Alanine Aminotransferase 37 Units/L (7-52); Albumin 2.4 g/dL (3.5-5.7); Albumin/Globulin Ratio 0.8 (1.1-2.2); Alkaline Phosphatase 114 Units/L (34-104); Aspartate Amino Transferase 43 Units/L (13-39); BUN/Creatinine Ratio 16 (6-26); Bilirubin,Direct 0.6 mg/dL (0.0-0.2); Bilirubin,Total 2.6 mg/dL (0.3-1.0); Blood Urea Nitrogen 12 mg/dL (8-23); Calcium 8.4 mg/dL (8.6-10.3); Carbon Dioxide 16 mEq/L (23-29); Chloride 110 mEq/L (98-107); Globulin 3.1 g/dL (2.4-3.5); Glucose 111 mg/dL (70-105); Magnesium 1.7 mg/dL (1.6-2.6); Osmolality,Calculated 282 (280-300); Phosphorous 3.2 mg/dL (2.7-4.5); Potassium 3.8 mEq/L (3.5-5.1); Sodium 136 mEq/L (136-145); Total Protein 5.5 g/dL (6.4-8.9); eGFR For Non-African Americans > 60 (> 60)
[2019-02-02] MEDS: 0.9 % Sodium Chloride 1,000 ML IVC SCH (06:18)
[2019-02-02] MEDS: Ampicillin/Sulbactam 3,000 MG in 0.9 % Sodium Chloride Mini Bag 100 ML IVPB SCH ×4 (06:18→21:00)
[2019-02-02] MEDS: Lactulose Oral Soln 20 GM/30 ML UDC PO SCH ×4 (10:10→20:57)
[2019-02-02] MEDS: Aspirin Enteric Coated 81 MG Tablet PO SCH (10:10)
--- NOTE | 2019-02-02 13:35 | Gastroenterology Consult Note ---
<Sunday Vazquez Swapna - Last Filed: 02/02/19 13:33> Date of Encounter: 02/02/19 Time of Encounter: 10:50 - Assessment and plan (1) Cirrhosis Current Visit: No Status: Acute Assessment and plan: MELD-Na 17, Child-Paez class C. Pt is s/p TIPS 11/18/2018. Titrate Lactulose for 2-4 BMs daily. Continue Rifaximin 550 mg BID. Rifaximin patient assistance forms given to patient and family member. AFP 3 on 11/19/2018. RUQ US 12/02/2018 with moderate RUQ ascites, and gallbladder wall thickening. Check zinc. Family requests Palliative Care consult. Lifestyle Changes: 1. Total abstinence from alcohol including social drinking. 2. No smoking. 3. Gradual loss of weight. 4. Drink at least 3 cups of coffee due to its antioxidant effects in the liver, it reduces risk of HCC and advance fibrosis. 5. If needed, use less than 2 g/day of Tylenol (in divided doses). 6. Vaccination for Hep A, B, Pneumococcus if not already received and yearly influenza vaccination by PCP. 7. Avoid NSAIDS as can cause kidney damage. 8. Avoid benzodiazepines and other sedatives such as anti-histamines, narcotics etc. as can cause encephalopathy or confusion. 9. Take a late carbohydrate meal supplement as it reduces glucose production f rom protein breakdown and thus improves nutrition. 10. In cirrhosis, statins are safe to use and also improve portal hypertension and decrease risk of HCC. 11. Screening: Hepatocellular cancer screening: US of liver and AFP every 6 months Qualifiers: Hepatic cirrhosis type: unspecified hepatic cirrhosis Ascites presence: with ascites Qualified Code(s): K74.60 - Unspecified cirrhosis of liver; R18.8 - Other ascites (2) Hepatic encephalopathy Current Visit: Yes Status: Acute Assessment and plan: As above. - Time Spent With Patient Total time spent is greater than 50% in coordination of care (as documented) at patient's floor/unit and/or counseling patient: GI History of Present Illness - Data of Consult Patient: known to practice within the last 3 years Consult date: 02/02/19 Requesting Physician: Marco Antonio Tomlinson MD - Consult Narrative Reason for consult: Hepatic encephalopathy History of present illness: Mr. Cruz is a 79 year old male with PMHx of CAD, DM, HLD, NC, and cirrhosis s/p TIPS 11/18/2018 who presented to the ED with hepatic encephalopathy. Per documentation, he was ambulating to bathroom last night when he fell to the ground. He denies any fever, chills, chest pain, shortness of breath, abdominal pain, melena, or hematochezia. He reports having 1-2 BM daily and has been taking his lactulose 3-4 times per day. Family at bedside states he was unable to purchase Rifaximin as it was too expensive. He states he has been feeling "foggy" in his head and not thinking clearly. Ammonia 220 on admission. Patient and family state he was thinking "very clearly" after his last hospitalization while receiving Rifaximin and Lactulose. Procedures: EGD 01/25/2018 Dr. Fitzgerald: Grade 1 esophageal varices, portal hypertensive gastropathy, repeat one year for surveillance. EGD 11/10/2017 Dr. Fitzgerald: Grade 1 esophageal varices, portal hypertensive gastropathy, nonbleeding gastric ulcers, gastritis with intestinal metaplasia, H. pylori positive. NSAIDs: ASA Anticoagulation: None Past Med Surg Social Fam HX - Past Medical History Medical history: cirrhosis, coronary artery disease, diabetes, hyperlipidemia, myocardial infarction, other Additional medical history: facial skin lesion, anemia,. WHITE COAT HYPERTENSION. ANXIETY. DM type II (resolved). GLAUCOMA. ERECTILE DYSFUNCTION. THROMBOCYTOPENIA. MIXED HIGH LIPIDS. CAD Psychiatric history: anxiety, depression, panic disorder - Past Surgical History Surgical History: cataract, other Additional surgical history: stent in liver - Social History Smoking Status: Former smoker Smokeless Tobacco Status: No Alcohol use: none Drug use: none - Family History Mother Living Status: Hx Family Cardiac Disorders: Yes (HTN) Father Living Status: Hx Family Cancer: Yes - Gastrointestinal Gastrointestinal: Present: as per HPI - Constitutional Constitutional: as per HPI - EENT Eyes: as per HPI Ears: Present: as per HPI Nose, mouth and throat: Present: as per HPI - Cardiovascular Cardiovascular ROS: Present: as per HPI - Respiratory Respiratory IM: Present: as per HPI - Genitourinary Genitourinary: Absent: change in color, Urinary frequency - Neurological ROS Neurological GI: Present: as per HPI - Hematologic/Lymphatic Hematologic/Lymphatic pediatric: Present: as per HPI - Musculoskeletal Musculoskeletal ROS GI: Present: as per HPI - Integumentary Integumentary GI: Present: as per HPI - Psychiatric ROS Psychiatric GI: Present: as per HPI - Endocrine Endocrine IM: Present: as per HPI - Constitutional Vitals: Temp Pulse Resp BP Pulse Ox 97.4 F L 73 18 128/46 100 02/02/19 11:24 02/02/19 11:24 02/02/19 11:24 02/02/19 11:24 02/02/19 11:24 General appearance: Present: cooperative, A&O X 2, no acute distress, answers questions appropriately - Head Head exam: Present: atraumatic, normocephalic - Eye Eye exam: Present: scleral icterus - ENT ENT exam: Present: mucous membranes dry - Neck Neck exam general surgery: Present: normal inspection, trachea midline - Respiratory Respiratory exam: Present: CTAB. Absent: rales, rhonchi - Cardiovascular Cardiovascular exam: Present: RRR, +S1, +S2 - GI/Abdominal GI/Abdominal exam: Present: soft, no peritoneal signs. Absent: distended, firm, guarding, tenderness - Rectal Rectal exam: Present: deferred - Extremities Exam Extremities exam: Present: warm - Neurological Exam Additional comments: oriented x2 - Psychiatric Psychiatric exam: Present: normal affect, normal mood - Skin Skin exam: Present: dry, intact, normal color, warm Results - Labs CBC & Chem 7: 02/02/19 04:55 02/02/19 04:55 Labs: Last Result Calcium 8.4 mg/dL (8.6-10.3) L 02/02/19 04:55 Troponin I < 0.03 ng/mL (< 0.04) 02/01/19 11:03 Urine Opiates Screen Negative ng/mL (Mbshzo=790) 02/01/19 11:27 Entire Visit Hgb 10.3 g/dL (12.9-16.9) L 02/02/19 04:55 Hct 29.8 % (37.5-50.1) L 02/02/19 04:55 PT 16.4 Seconds (9.4-12.1) H 02/02/19 04:55 Total Bilirubin 2.6 mg/dL (0.3-1.0) H 02/02/19 04:55 AST 43 Units/L (13-39) H 02/02/19 04:55 ALT 37 Units/L (7-52) 02/02/19 04:55 Ammonia 78 mcmol/L (16-53) H 02/02/19 09:23 - ABG ABG results: PT/INR, D-dimer PT 16.4 Seconds (9.4-12.1) H 02/02/19 04:55 Consult Discharge Plan - Plan Referrals: NONE,PCP [Primary Care Provider] - <Tova Fitzgerald - Last Filed: 02/02/19 17:51> Date of Encounter: 02/02/19 Time of Encounter: 18:00 - Time Spent With Patient Total time spent is greater than 50% in coordination of care (as documented) at patient's floor/unit and/or counseling patient: GI History of Present Illness - Data of Consult Requesting Physician: Marco Antonio Tomlinson MD - Consult Narrative History of present illness: Mr. Cruz is a 79 year old male - Constitutional Vitals: Temp Pulse Resp BP Pulse Ox 98.1 F 71 18 143/68 99 02/02/19 16:15 02/02/19 16:15 02/02/19 16:15 02/02/19 16:15 02/02/19 16:15 Results - Labs CBC & Chem 7: 02/02/19 04:55 02/02/19 04:55 Labs: Last Result Calcium 8.4 mg/dL (8.6-10.3) L 02/02/19 04:55 Troponin I < 0.03 ng/mL (< 0.04) 02/01/19 11:03 Urine Opiates Screen Negative ng/mL ([id number]=507) 02/01/19 11:27 Entire Visit Hgb 10.3 g/dL (12.9-16.9) L 02/02/19 04:55 Hct 29.8 % (37.5-50.1) L 02/02/19 04:55 PT 16.4 Seconds (9.4-12.1) H 02/02/19 04:55 Total Bilirubin 2.6 mg/dL (0.3-1.0) H 02/02/19 04:55 AST 43 Units/L (13-39) H 02/02/19 04:55 ALT 37 Units/L (7-52) 02/02/19 04:55 Ammonia 78 mcmol/L (16-53) H 02/02/19 09:23 - ABG ABG results: PT/INR, D-dimer PT 16.4 Seconds (9.4-12.1) H 02/02/19 04:55 - Attending Attestation I have personally performed a face to face evaluation on this patient. I have reviewed and agree with the care plan. History and Exam by me shows: Patient seen more alert today. On examination: Abdomen is mildly distended extremities no edema. Assessment: Patient with known cirrhosis status post TIPS placement for refractory ascites now admitted because of the encephalopathy patient does has a problem not taking rifaximin because of too high of copay. Recommendation: Lactulose and rifaximin patient to sign paper to help him getting the rifaximin
--- NOTE | 2019-02-02 13:52 | Internal Med Progress Note ---
Hospitalist Progress Note - Encounter Date of Encounter: 02/02/19 Time of Encounter: 13:49 - Subjective Interval History: Evaluated patient earlier today. He was lying down in bed. Denies any new complaints. Feels better overall with regards to his mental status. Denies any abdominal pain. No nausea or vomiting. Did have a large bowel movement yes terday. - Exam Vitals: Temp Pulse Resp BP Pulse Ox 97.4 F L 73 18 128/46 100 02/02/19 11:24 02/02/19 11:24 02/02/19 11:24 02/02/19 11:24 02/02/19 11:24 Exam: General: Patient is alert, mild distress, oriented x 2 ENT: Mucous membranes moist Respiratory: Good respiratory effort. Normal breath sounds. No wheezing or crackles. Cardiovascular: Regular rate and rhythm. s1 and s2 normal No clicks, rubs, gal lops, or murmurs. No pedal edema Abdomen: Abdomen is soft, nontender. Bowel sounds are present Musculoskeletal: Spontaneously moving all extremities Skin: warm, dry, intact. Neuro: Alert oriented x2 normal cranial nerves, no focal deficits - Assessment and Plan (1) Severe sepsis Current Visit: Yes Status: Acute Assessment and Plan: Concern for severe sepsis initially due to elevated lactic acid. Possibly related to aspiration pneumonia. Patient currently on Unasyn. Doing much chiara r today. WBC count remains normal. Patient has not had any new episodes of fever or chills. (2) Hepatic encephalopathy Current Visit: Yes Status: Acute Assessment and Plan: Improving. Patient's mental status is close to his baseline now. Ammonia 78 today. Continue lactulose and rifaximin (3) Pneumonia Current Visit: Yes Status: Suspected Assessment and Plan: Suspected aspiration pneumonia. Patient currently on Unasyn. Will complete 7 day course. (4) Cirrhosis Current Visit: Yes Status: Acute Assessment and Plan: Gastroenterology consulted. Patient is status post TIPS procedure. Does have chronic thrombocytopenia. Continue lactulose and rifaximin. Per GI, family requesting palliative care consult. We will place consult for this. (5) CAD (coronary artery disease) Current Visit: Yes Status: Chronic Assessment and Plan: Continue aspirin, statin. DVT Prophylaxis: With SCDs alone given thrombocytopenia - Time Spent with Patient Total time spent is greater than 50% in coordination of care (as documented) at patient's floor/unit and/or counseling patient: Internal Medicine: Result - Labs CBC & Chem 7: 02/02/19 04:55 02/02/19 04:55 Labs: Short CBC 02/02/19 Range/Units 04:55 WBC 6.5 (4.3-11.1) K/mcL Hgb 10.3 L (12.9-16.9) g/dL Hct 29.8 L (37.5-50.1) % Plt Count 106 L (140-400) K/mcL BMP 02/02/19 04:55 Sodium 136 Potassium 3.8 Chloride 110 H Carbon Dioxide 16 L BUN 12 Creatinine 0.75 Glucose 111 H Calcium 8.4 L Liver Function 02/02/19 Range/Units 04:55 Total Bilirubin 2.6 H (0.3-1.0) mg/dL Direct Bilirubin 0.6 H (0.0-0.2) mg/dL AST 43 H (13-39) Units/L ALT 37 (7-52) Units/L Alkaline Phosphatase 114 H (34-104) Units/L Albumin 2.4 L (3.5-5.7) g/dL - ABG Interpretation ABG results: PT/INR, D-dimer PT 16.4 Seconds (9.4-12.1) H 02/02/19 04:55 Consult Discharge Plan - Plan Referrals: NONE,PCP [Primary Care Provider] - (3) Pneumonia Qualifiers: Pneumonia type: aspiration pneumonia Aspiration pneumonia type: due to regurgitated food Laterality: left Lung location: lower lobe of lung Qualified Code(s): J69.0 - Pneumonitis due to inhalation of food and vomit (4) Cirrhosis Qualifiers: Hepatic cirrhosis type: unspecified hepatic cirrhosis Ascites presence: with ascites Qualified Code(s): K74.60 - Unspecified cirrhosis of liver; R18.8 - Other ascites (5) CAD (coronary artery disease) Qualifiers: Coronary Disease-Associated Artery/Lesion type: false pass artery [place] vs. transplanted heart: false pass heart Associated angina: without angina Qualified Code(s): I25.10 - Atherosclerotic heart disease of false pass coronary artery without angina pectoris
--- NOTE | 2019-02-02 15:03 | Palliative - Consult Note ---
Date of Encounter: 02/02/19 Time of Encounter: 14:56 - Assessment and Plan (1) Acute metabolic encephalopathy Current Visit: No Status: Resolved Assessment and plan: Patient is now back to baseline as per daughter present at the bedside. Ammonia level improved to 78 from 220. management per primary team and GI (2) Encounter for palliative care Current Visit: Yes Status: Acute Assessment and plan: 40 minutes assessment: Met with patient, daughter Roya and son in law were present. Evaluated patient's understanding of current medical condition, trajectory of illness, prognosis and treatment options. All questions were answered. Patient requested the GOC discussion to be postponed to when can be available. Family meeting scheduled for tomorrow 02/03 at 11am. 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 History of present illness: Mr. Cruz is a 79 year old male with PMH of severe cirrhosis s/p TIPS, CAD, who p/w confusion and a fall. Patient at the time of admission was confused, and stated to have fallen while attempting to go to the bathroom. On admission, labs showed lactic acid 5.3, VBG pH 7.29, Na 131, CO2 18, Ammonia 220, Tbili 1.7, albumin 2.8, INR 1.4, Plt 113. CT head unremarkable. CXR showing LLL atelectasis or infiltrate. Patient was admitted for hepatic encephalopathy and pneumonia. Patient was admitted recently with similar complains. At the time of exam, patient was AAOx3, in no acute distress, he denies any pain, nausea, vomiting, have been having regular BM. he states to have lost a lot of weight, despite a good appetite. CC: Marco Antonio Tomlinson MD - Time Spent with Patient Time: Total time spent is greater than 50% in coordination of care (as documented) at patient's floor/unit and/or counseling patient: Time with patient: 45 minutes Past Med Surg Social Fam HX - Past Medical History Medical history: cirrhosis, coronary artery disease, diabetes, hyperlipidemia, myocardial infarction, other Additional medical history: facial skin lesion, anemia,. WHITE COAT HYPERTENSION. ANXIETY. DM type II (resolved). GLAUCOMA. ERECTILE DYSFUNCTION. THROMBOCYTOPENIA. MIXED HIGH LIPIDS. CAD Psychiatric history: anxiety, depression, panic disorder - Past Surgical History Surgical History: cataract, other Additional surgical history: stent in liver - Social History Smoking Status: Former smoker Smokeless Tobacco Status: No Alcohol use: none Drug use: none - Family History Mother Living Status: Hx Family Cardiac Disorders: Yes (HTN) Father Living Status: Hx Family Cancer: Yes Medications and Allergies Ascorbate Calcium [Vitamin C] 500 mg PO DAILY 01/25/18 [History] Cyanocobalamin (Vitamin B-12) [Vitamin B12] 1,000 mcg PO DAILY 10/31/18 [History] Aspirin Enteric Coated [Aspirin EC] 81 mg PO DAILY tablet. 11/02/18 [Rx] Sodium Chloride [Sodium Chloride Tab] 1 gm PO TID #90 tablet 11/02/18 [Rx] Potassium Chloride [K-Tab ER] 40 meq PO BID 12/24/18 [History] Pravastatin Sodium 10 mg PO DAILY 12/24/18 [History] Magnesium Oxide [Magnesium] 400 mg PO BID 01/24/19 [History] Midodrine [ProAmatine] 5 mg PO TID 01/24/19 [History] Spironolactone 25 mg PO QPM 01/24/19 [History] Spironolactone [Aldactone] 50 mg PO QAM 01/24/19 [History] Furosemide [Lasix] 20 mg PO QPM 02/01/19 [History] Furosemide [Lasix] 40 mg PO QAM 02/01/19 [History] Lactulose 10 gm PO TID 02/01/19 [History] Allergy/AdvReac Type Severity Reaction Status Date / Time Iodinated Contrast- Oral and AdvReac See Verified 01/24/19 14:31 IV Dye Comments pantoprazole [From Protonix] AdvReac see comment Verified 01/24/19 14:31 - Constitutional Constitutional ROS PAL: no chills, no fever(s) - EENT Eyes: no pain Ears, nose, mouth, throat: no dysphagia - Cardiovascular Cardiovascular ROS: no chest pain at rest, no dyspnea on exertion - Respiratory Respiratory: no dyspnea - Gastrointestinal Gastrointestinal: diarrhea (on lactulose), no abdominal pain - Genitourinary Genitourinary ROS male: no difficulty urinating, no dysuria - Musculoskeletal Musculoskeletal ROS IM: muscle weakness - Integumentary ROS Integumentary: unusual bruising - Neurological Neurological ROS: no abnormal movements, no focal weakness - Psychiatric Psychiatric general PM: no depression Palliative Care-Exam - Constitutional Vitals: Temp Pulse Resp BP Pulse Ox 97.4 F L 73 18 128/46 100 02/02/19 11:24 02/02/19 11:24 02/02/19 11:24 02/02/19 11:24 02/02/19 11:24 Exam: General: NAD, Head: Atraumatic, normocephalic. Face symmetric Eyes: EOMI, sclerae anicteric ENT: Mucous membranes moist. Trachea midline. Thoracic: No visible chest wall deformities. clear breath sounds Cardio: Normal S1 and S2, regular rhythm Abdomen: Soft, nontender, nondistended. Bowel sounds present Extremities: Warm, well perfused. DP pulses 2+ b/l. Does have 1+ pitting edema to b/l knee Skin: Intact. No rashes, bruises, or ulcers noted Neuro: AAOx3, CN II-XII grossly intact. Strength 5/5 in b/l UE and LE. Internal Medicine - CN: Reslt - Labs CBC & Chem 7: 02/02/19 04:55 02/02/19 04:55 Labs: Short CBC 02/02/19 Range/Units 04:55 WBC 6.5 (4.3-11.1) K/mcL Hgb 10.3 L (12.9-16.9) g/dL Hct 29.8 L (37.5-50.1) % Plt Count 106 L (140-400) K/mcL BMP 02/02/19 04:55 Sodium 136 Potassium 3.8 Chloride 110 H Carbon Dioxide 16 L BUN 12 Creatinine 0.75 Glucose 111 H Calcium 8.4 L Liver Function 02/02/19 Range/Units 04:55 Total Bilirubin 2.6 H (0.3-1.0) mg/dL Direct Bilirubin 0.6 H (0.0-0.2) mg/dL AST 43 H (13-39) Units/L ALT 37 (7-52) Units/L Alkaline Phosphatase 114 H (34-104) Units/L Albumin 2.4 L (3.5-5.7) g/dL - ABG Interpretation ABG results: PT/INR, D-dimer PT 16.4 Seconds (9.4-12.1) H 02/02/19 04:55 Consult Discharge Plan - Plan Referrals: NONE,PCP [Primary Care Provider] - Palliative Quality Palliative Quality: Screen for Code Status: Yes, Screen for Goals of Care: Yes, Screen for Pain: Yes, If Pain Regimen Started, Initiate Bowel Regimen: Yes, Screen for Nausea/Vomitting: Yes (on lactulose) Code Status: 02/01/19 14:07 Resuscitation Status: Active [RES] Routine Comment: Resuscitation Status: Full Code 02/01/19 18:43 CODE [Resuscitation Status: Active] [RES] Routine Comment: Resuscitation Status: [id number] Palliative Scale - Palliative Performance Scale How ambulatory is this patient?: Reduced What is patient's level of activity and evidence of disease?: Unable hobby/housework, Significant disease How much self-care assistance does patient require?: Occasional assistance neces clifford How much oral intake does the patient have?: Normal What is this patient's level of consciousness?: Full or confusion Palliative Performance Score: 60 %
--- NOTE | 2019-02-02 17:57 | Electrocardiograph Report ---
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
[2019-02-03] MEDS: Ampicillin/Sulbactam 3,000 MG in 0.9 % Sodium Chloride Mini Bag 100 ML IVPB SCH ×4 (03:10→20:34)
[2019-02-03] MEDS: Lactulose Oral Soln 20 GM/30 ML UDC PO SCH ×4 (08:31→20:34)
[2019-02-03] MEDS: Aspirin Enteric Coated 81 MG Tablet PO SCH (08:31)
--- NOTE | 2019-02-03 11:32 | Palliative Progress Note ---
Date of Encounter: 02/03/19 Time of Encounter: 11:30 - Assessment and plan (1) Acute metabolic encephalopathy Current Visit: No Status: Resolved Assessment and plan: resolved with rifaximin and lactulose. (2) Goals of care, counseling/discussion Current Visit: No Status: Acute Assessment and plan: conducted a 30 minutes meeting along with Tax Services Manager Rev. Rojas. Present were patient's Otilia, daughter Ryder, son-in-law, grand-daughter Patricia and 2 more grand-children. Discussed current medical condition, patient has been having r ecurrent admissions due to hepatic encephalopathy. Discussed trajectory of illness, overall prognosis and treatment options. Patient at this time is willing to continue treatment. He has been compliant with lactulose, but so far was unable to afford the copayment for rifaximin. Patient will agree to go to rehab, both to regain some strength, and to give his family some time to apply for financial support for the Rifaximin. Patient expressed that his goal is to return home and stay home. He does not wish to return to the hospital and be treated again if he was to develop hepatic encephalopathy. He would like at that point to receive only comfort care. PT and OT ordered, YONI Landa made aware, discussed with primary hospitalist. (3) Encounter for palliative care Current Visit: Yes Status: Acute Assessment and plan: Palliative care consult per family request for [facility] discussion. (4) End-stage liver disease Current Visit: No Status: Acute Assessment and plan: patient is end-stage liver disease, but does not yet meet criteria for hospice, unless his recurrent metabolic encephalopathy persist despite treatment. - Time Spent With Patient Total time spent is greater than 50% in coordination of care (as documented) at patient's floor/unit and/or counseling patient: Greater than 35 minutes - Subjective Interval history: Patient was sitting on chair, feeling much better today. Family at the bedside. Denies any pain, nausea, vomiting, good appetite. - Constitutional Vitals: Abnormal lab results RBC 2.94 M/mcL (4.19-5.50) L 02/02/19 04:55 Hgb 10.3 g/dL (12.9-16.9) L 02/02/19 04:55 Hct 29.8 % (37.5-50.1) L 02/02/19 04:55 MCV 101.4 fL (83.0-100.0) H 02/02/19 04:55 MCH 35.0 pg (28.0-33.3) H 02/02/19 04:55 RDW 15.4 % (11.5-14.5) H 02/02/19 04:55 Plt Count 106 K/mcL (140-400) L 02/02/19 04:55 MPV 9.1 fL (9.4-12.4) L 02/02/19 04:55 PT 16.4 Seconds (9.4-12.1) H 02/02/19 04:55 APTT 40.8 Seconds (26.0-36.0) H 02/01/19 11:03 VBG pCO2 23 mmHg (41-51) L 02/01/19 16:06 VBG pO2 159 mmHg (25-50) H 02/01/19 16:06 VBG HCO3 15 mEq/L (21-27) L 02/01/19 16:06 Chloride 110 mEq/L (98-107) H 02/02/19 04:55 Carbon Dioxide 16 mEq/L (23-29) L 02/02/19 04:55 Glucose 111 mg/dL (70-105) H 02/02/19 04:55 Lactic Acid 2.6 mmol/L (0.5-2.2) H 02/02/19 09:23 Calcium 8.4 mg/dL (8.6-10.3) L 02/02/19 04:55 Total Bilirubin 2.6 mg/dL (0.3-1.0) H 02/02/19 04:55 Direct Bilirubin 0.6 mg/dL (0.0-0.2) H 02/02/19 04:55 Indirect Bilirubin 2.0 mg/dL (0.0-1.2) H 02/02/19 04:55 AST 43 Units/L (13-39) H 02/02/19 04:55 Alkaline Phosphatase 114 Units/L (34-104) H 02/02/19 04:55 Ammonia 78 mcmol/L (16-53) H 02/02/19 09:23 Serum Total Protein 5.5 g/dL (6.4-8.9) L 02/02/19 04:55 Albumin 2.4 g/dL (3.5-5.7) L 02/02/19 04:55 Albumin/Globulin Ratio 0.8 (1.1-2.2) L 02/02/19 04:55 Exam: General: NAD, Head: Atraumatic, normocephalic. Face symmetric Eyes: EOMI, sclerae anicteric ENT: Mucous membranes moist. Trachea midline. Thoracic: No visible chest wall deformities. clear breath sounds Cardio: Normal S1 and S2, regular rhythm Abdomen: Soft, nontender, nondistended. Bowel sounds present Extremities: Warm, well perfused. DP pulses 2+ b/l. Does have 1+ pitting edema to b/l knee Skin: Intact. No rashes, bruises, or ulcers noted Neuro: AAOx3, CN II-XII grossly intact. Strength 5/5 in b/l UE and LE. Palliative Quality Palliative Quality: Screen for Code Status: Yes, Screen for Goals of Care: Yes, Screen for Pain: Yes, If Pain Regimen Started, Initiate Bowel Regimen: Yes, Screen for Nausea/Vomitting: Yes (on lactulose) Code Status: 02/01/19 14:07 Resuscitation Status: Active [RES] Routine Comment: Resuscitation Status: Full Code 02/01/19 18:43 CODE [Resuscitation Status: Active] [RES] Routine Comment: Resuscitation Status: [id number] - Labs CBC & Chem 7: 02/02/19 04:55 02/02/19 04:55 - ABG Interpretation ABG results: PT/INR, D-dimer PT 16.4 Seconds (9.4-12.1) H 02/02/19 04:55 Palliative Scale - Palliative Performance Scale How ambulatory is this patient?: Reduced What is patient's level of activity and evidence of disease?: Unable hobby/housework, Significant disease How much self-care assistance does patient require?: Occasional assistance necessary How much oral intake does the patient have?: Normal What is this patient's level of consciousness?: Full or confusion Palliative Performance Score: 60 % Consult Discharge Plan - Plan Referrals: NONE,PCP [Primary Care Provider] -
--- NOTE | 2019-02-03 16:22 | Internal Med Progress Note ---
Hospitalist Progress Note - Encounter Date of Encounter: 02/03/19 Time of Encounter: 16:00 - Subjective Interval History: Patient is lying on bed. Comfortable. Awake and alert. No new complaints reported overnight. Patient has a family meeting with palliative care earlier this morning. - Exam Vitals: Temp Pulse Resp BP Pulse Ox 97.9 F 70 14 139/81 99 02/03/19 12:08 02/03/19 12:08 02/03/19 12:08 02/03/19 12:08 02/03/19 12:08 Exam: General: Patient is alert, no acute distress, oriented x 3 ENT: Mucous membranes moist Respiratory: Good respiratory effort. Normal breath sounds. No wheezing or crackles. Cardiovascular: Regular rate and rhythm. s1 and s2 normal No clicks, rubs, gallops, or murmurs. No pedal edema Abdomen: Abdomen is soft, nontender. Bowel sounds are present Musculoskeletal: Spontaneously moving all extremities Skin: warm, dry, intact. Neuro: Alert oriented x 3 normal cranial nerves, no focal deficits - Assessment and Plan (1) Severe sepsis Current Visit: Yes Status: Resolved Assessment and Plan: Blood cultures have been negative. Clinically patient is improving. We will complete 7 day course to treat possible aspiration pneumonia. (2) Hepatic encephalopathy Current Visit: Yes Status: Resolved Assessment and Plan: Now resolved. Continue lactulose. Rifaximin also prescribed. However since costly for the patient and so we will arrange for follow-up with GI so that patient may be evaluated for any programs to help decrease costs. (3) Pneumonia Current Visit: Yes Status: Suspected Assessment and Plan: Treating patient for possible aspiration pneumonia. Patient is clinically getting better. Will transition to oral Augmentin. (4) Cirrhosis Current Visit: Yes Status: Chronic Assessment and Plan: GI consult appreciated. Continue supportive care. Continue lactulose. (5) CAD (coronary artery disease) Current Visit: Yes Status: Chronic Assessment and Plan: Patient on aspirin, low-dose statin. DVT Prophylaxis: With SCDs - Time Spent with Patient Total time spent is greater than 50% in coordination of care (as documented) at patient's floor/unit and/or counseling patient: Internal Medicine: Result - Labs CBC & Chem 7: 02/02/19 04:55 02/02/19 04:55 - ABG Interpretation ABG results: PT/INR, D-dimer PT 16.4 Seconds (9.4-12.1) H 02/02/19 04:55 Consult Discharge Plan - Plan Referrals: NONE,PCP [Primary Care Provider] - _ (3) Pneumonia Qualifiers: Pneumonia type: aspiration pneumonia Aspiration pneumonia type: due to regurgitated food Laterality: left Lung location: lower lobe of lung Qualified Code(s): J69.0 - Pneumonitis due to inhalation of food and vomit (4) Cirrhosis Qualifiers: Hepatic cirrhosis type: unspecified hepatic cirrhosis Ascites presence: with ascites Qualified Code(s): K74.60 - Unspecified cirrhosis of liver; R18.8 - Other ascites (5) CAD (coronary artery disease) Qualifiers: Coronary Disease-Associated Artery/Lesion type: ch[place] artery [place] vs. [place] splanted heart: ch[place]koot heart Associated angina: without angina Qualified Code(s): I25.10 - Atherosclerotic heart disease of [place] coronary artery without angina pectoris
[2019-02-04] MEDS: Ampicillin/Sulbactam 3,000 MG in 0.9 % Sodium Chloride Mini Bag 100 ML IVPB SCH ×2 (03:11→09:21)
[2019-02-04] MEDS: Aspirin Enteric Coated 81 MG Tablet PO SCH (09:21)
[2019-02-04] MEDS: Lactulose Oral Soln 20 GM/30 ML UDC PO SCH ×3 (09:21→16:17)
[2019-02-04 11:20] VITALS: BP 125/57
--- NOTE | 2019-02-04 14:23 | Discharge Summary ---
- NOTES TO OUTPATIENT PROVIDER Notes to Outpatient Provider: Patient with a history of severe cirrhosis status post TIPS procedure, coronary artery disease was hospitalized here with hepatic encephalopathy. His ammonia level was initially greater than 200. She was also suspected of having severe sepsis related to aspiration pneumonia. He received antibiotics with improvement in his symptoms. He will complete a short course of Augmentin to complete treatment for this. He received lactulose enema in the ER and after that his symptoms began to improve. He is now doing much better and is encephalopathy has resolved. He was evaluated by GI and recommended to start taking rifaximin. However this time he is not able to effort this medication. roll on worker and GI are working on patient assistance forms for the patient so that this medication can be provided. In the meantime, patient was also evaluated by physical therapy and they do not recommend ECF placement. He will continue to receive home health at home. Patient has been strongly advised to take lactulose as prescribed to titrate to have at least 3 bowel move ments a day. If he is becoming confused, he will need to take more of the lactulose. He and his understand this and agree with treatment plan. Orders not resulted at time of discharge: Pending orders 02/01/19 11:59 Culture,Blood [BC] Stat 02/01/19 15:35 Bedside Swallowing Evaluation [EVAL] Routine Date of Encounter: 02/04/19 Time of Encounter: 14:19 - Discharge Diagnosis (1) Severe sepsis Priority: Primary Status: Resolved (2) Hepatic encephalopathy Priority: Secondary Status: Resolved (3) Pneumonia Priority: Secondary Status: Acute Qualifiers: Pneumonia type: aspiration pneumonia Aspiration pneumonia type: due to regurgitated food Laterality: left Lung location: lower lobe of lung Qualified Code(s): J69.0 - Pneumonitis due to inhalation of food and vomit (4) Cirrhosis Priority: Secondary Status: Chronic Qualifiers: Hepatic cirrhosis type: unspecified hepatic cirrhosis Ascites presence: with ascites Qualified Code(s): K74.60 - Unspecified cirrhosis of liver; R18.8 - Other ascites (5) CAD (coronary artery disease) Priority: Secondary Status: Chronic Qualifiers: Coronary Disease-Associated Artery/Lesion type: [place] artery [place] vs. transplanted heart: [place] heart Associated angina: without angina Qualified Code(s): I25.10 - Atherosclerotic heart disease of [place] coronary artery without angina pectoris Hospital course: Mr. Cruz is a 79 year old male Patient with a history of severe cirrhosis status post TIPS procedure, coronary artery disease was hospitalized here with hepatic encephalopathy. His ammonia level was initially greater than 200. She was also suspected of having severe sepsis related to aspiration pneumonia. He received antibiotics with improvement in his symptoms. He will complete a short course of Augmentin to complete treatment for this. He received lactulose enema in the ER and after that his symptoms began to improve. He is now doing much better and is encephalopathy has resolved. He was evaluated by GI and recommended to start taking rifaximin. However this time he is not able to effort this medication. roll on worker and GI are working on patient assistance forms for the patient so that this medication can be provided. In the meantime, patient was also evaluated by physical therapy and they do not recommend ECF placement. He will continue to receive home health at home. Patient has been strongly advised to take lactulose as prescribed to titrate to have at least 3 bowel movements a day. If he is becoming confused, he will need to take more of the lactulose. He and his understand this and agree with treatment plan. Discharge discussed with: patient, nurse, case management - Time Spent with Patient Total time spent providing and/or coordinating discharge services: Time spent: Greater than 30 minutes (35 min) - Discharge Medications Prescriptions: New Amoxicillin/Clavulanate [Augmentin] 875 mg PO BIDWM #10 tablet Rifaximin [Xifaxan] 550 mg PO BID #60 tablet Continue Ascorbate Calcium [Vitamin C] 500 mg PO DAILY Cyanocobalamin (Vitamin B-12) [Vitamin B12] 1,000 mcg PO DAILY Aspirin Enteric Coated [Aspirin EC] 81 mg PO DAILY tablet. Sodium Chloride [Sodium Chloride Tab] 1 gm PO TID #90 tablet Potassium Chloride [K-Tab ER] 40 meq PO BID Pravastatin Sodium 10 mg PO DAILY Magnesium Oxide [Magnesium] 400 mg PO BID Midodrine [ProAmatine] 5 mg PO TID Spironolactone 25 mg PO QPM Spironolactone [Aldactone] 50 mg PO QAM Furosemide [Lasix] 40 mg PO QAM Furosemide [Lasix] 20 mg PO QPM Lactulose 10 gm PO TID Home Medications: Ascorbate Calcium [Vitamin C] 500 mg PO DAILY 04/09/18 [History] Cyanocobalamin (Vitamin B-12) [Vitamin B12] 1,000 mcg PO DAILY 10/31/18 [History] Aspirin Enteric Coated [Aspirin EC] 81 mg PO DAILY tablet. 11/02/18 [Rx] Sodium Chloride [Sodium Chloride Tab] 1 gm PO TID #90 tablet 11/02/18 [Rx] Potassium Chloride [K-Tab ER] 40 meq PO BID 12/24/18 [History] Pravastatin Sodium 10 mg PO DAILY 12/24/18 [History] Magnesium Oxide [Magnesium] 400 mg PO BID 01/24/19 [History] Midodrine [ProAmatine] 5 mg PO TID 01/24/19 [History] Spironolactone 25 mg PO QPM 01/24/19 [History] Spironolactone [Aldactone] 50 mg PO QAM 01/24/19 [History] Furosemide [Lasix] 20 mg PO QPM 02/01/19 [History] Furosemide [Lasix] 40 mg PO QAM 02/01/19 [History] Lactulose 10 gm PO TID 02/01/19 [History] Amoxicillin/Clavulanate [Augmentin] 875 mg PO BIDWM #10 tablet 02/04/19 [Rx] Rifaximin [Xifaxan] 550 mg PO BID #60 tablet 02/04/19 [Rx] Allergies/Adverse Reactions: Allergy/AdvReac Type Severity Reaction Status Date / Time Iodinated Contrast- Oral and AdvReac See Verified 01/24/19 14:31 IV Dye Comments pantoprazole [From Protonix] AdvReac see comment Verified 01/24/19 14:31 Date of admission: 02/01/19 13:40 Primary care physician: PCP NONE Consults: 02/01/19 14:13 Consult to Gastroenterology [CONS] Routine Consulting Provider: Gastroenterology Minda Reason for Consult: hepatic encephalopathy Call Completed: No 02/02/19 12:56 Consult to Nurse Navigator [CONS] Routine Comment: pn 02/02/19 13:46 Consult to Palliative Care [CONS] Routine Comment: Consulting Provider: Palliative Care [facility] Reason for Consult: Family request, pt with cirrhosis Call Completed: Yes 02/03/19 12:01 PT [Consult to Physical Therapy] [CONS] Routine Comment: Evaluate, develop and implement POC Reason for Consult: discharge planning Does patient have active BEDREST order?: No Is patient medically & hemodynamically stable?: Yes Patient assessed for mobility or mobilized this visit?: Yes 02/03/19 12:02 OT [Consult to Occupational Therapy] [CONS] Routine Comment: Evaluate, develop and implement POC Reason for Consult: Discharge planning Does patient have active BEDREST order?: No Is patient medically & hemodynamically stable?: Yes Patient assessed for mobility or mobilized this visit?: Yes Discharging clinician: Marco Antonio Tomlinson Anticipated date of discharge: 02/04/19 - Constitutional Vitals: Temp Pulse Resp BP Pulse Ox 98.6 F 73 20 125/57 97 02/04/19 11:15 02/04/19 11:15 02/04/19 11:15 02/04/19 11:15 02/04/19 11:15 General appearance: Present: cooperative, A&O X 3, pleasant, no acute distress, answers questions appropriately Exam: . - Respiratory Respiratory exam: Present: CTAB. Absent: accessory muscle use, rales, rhonchi, wheezes - Cardiovascular Cardiovascular exam: Present: RRR, +S1, +S2. Absent: diastolic murmur, gallop, rubs, systolic murmur - GI/Abdominal GI/Abdominal exam: Present: normal bowel sounds, soft, no peritoneal signs. Absent: distended, tenderness - Patient Status Disposition: Home Health Service Condition: Good Functional capacity at discharge: independent ambulation Overall status at discharge: patient is back to baseline - Discharge Instructions Instructions: Pneumonia (DC) Follow Up With: NONE,PCP [Primary Care Provider] - Tova Fitzgerald MD [Partnered Physician] - (in 1-2 weeks) Additional Instructions: Take lactulose as prescribed. Titrate it up so that he had 3 bowel movements d aily. If he starts to notice that you becoming confused, please take extra dose of lactulose till you have a bowel movement. - Diet and Activity Activity: increase activity as tolerated Diet: low fat, low cholesterol
--- NOTE | 2019-02-04 14:38 | Physician Discharge Referral ---
Home Health/Hosp Referral Info Transfer to: Home Health Provider in Charge Post Discharge: PCP - Diagnosis (1) Hepatic encephalopathy Priority: Primary Status: Resolved (2) Severe sepsis Priority: Secondary Status: Resolved (3) Pneumonia Priority: Secondary Status: Acute (4) Cirrhosis Priority: Secondary Status: Chronic (5) CAD (coronary artery disease) Priority: Secondary Status: Chronic - Respiratory Orders Smoking Cessation: Smoking cessation has been advised. For more information, call the [place] Tobacco Quit Line at 5-859-IAZD-NOW. - Diet/Nutrition Diet/Nutrition Orders: Cardiac - Activity Activity Orders: Up ad liana - Services Needed Following services are medically necessary services: Nursing, Home Health Aide - Transfer Medications Prescriptions: Amoxicillin/Clavulanate [Augmentin] 875 mg PO BIDWM #10 tablet Rifaximin [Xifaxan] 550 mg PO BID #60 tablet Home Medications: Ascorbate Calcium [Vitamin C] 500 mg PO DAILY 01/25/18 [History] Cyanocobalamin (Vitamin B-12) [Vitamin B12] 1,000 mcg PO DAILY 10/31/18 [History] Aspirin Enteric Coated [Aspirin EC] 81 mg PO DAILY tablet. 11/02/18 [Rx] Sodium Chloride [Sodium Chloride Tab] 1 gm PO TID #90 tablet 11/02/18 [Rx] Potassium Chloride [K-Tab ER] 40 meq PO BID 12/24/18 [History] Pravastatin Sodium 10 mg PO DAILY 12/24/18 [History] Magnesium Oxide [Magnesium] 400 mg PO BID 01/24/19 [History] Midodrine [ProAmatine] 5 mg PO TID 01/24/19 [History] Spironolactone 25 mg PO QPM 01/24/19 [History] Spironolactone [Aldactone] 50 mg PO QAM 01/24/19 [History] Furosemide [Lasix] 20 mg PO QPM 02/01/19 [History] Furosemide [Lasix] 40 mg PO QAM 02/01/19 [History] Lactulose 10 gm PO TID 02/01/19 [History] Amoxicillin/Clavulanate [Augmentin] 875 mg PO BIDWM #10 tablet 02/04/19 [Rx] Rifaximin [Xifaxan] 550 mg PO BID #60 tablet 02/04/19 [Rx] Allergies/Adverse Reactions: Allergy/AdvReac Type Severity Reaction Status Date / Time Iodinated Contrast- Oral and AdvReac See Verified 01/24/19 14:31 IV Dye Comments pantoprazole [From Protonix] AdvReac see comment Verified 01/24/19 14:31 Certification: Further, I certify that my clinical findings support that this patient is homebound (i.e. absences from home require considerable and taxing effort and are for medical reasons or adventism services or infrequently or short duration when for other reasons) because: Homebound Reason: Patient requires assistance of a person or device to safely leave home Attestation: My signature below is to certify that this patient is under my care and that I, or nurse practitioner, or a physician's administrative assistant receptionist working with me, has a [id number] encounter with this patient.
--- NOTE | 2019-02-04 16:36 | Palliative Progress Note ---
Date of Encounter: 02/04/19 Time of Encounter: 15:00 - Assessment and plan (1) End-stage liver disease Current Visit: No Status: Acute Assessment and plan: patient is end-stage liver disease, but does not yet meet criteria for hospice, unless his recurrent metabolic encephalopathy persist despite treatment. (2) Goals of care, counseling/discussion Current Visit: No Status: Acute Assessment and plan: Patient is ready to return home, and family and physicians are working on the application for financial assistance for the Rifaximin. Patient counseled to increase the dose of Lactulose and titrate to BM. Discussed hospice and exp lained the phylosophy of hospice. Patient is hospice candidate, however he wants to attempt to get a continuous treatment with Rifaximin. in case it does not work or he cannot afford it, then he will choose hospice. Hospice brochure and contacts given to . (3) Encounter for palliative care Current Visit: Yes Status: Acute Assessment and plan: Palliative care consult per family request for GOC discussion. - Time Spent With Patient Total time spent is greater than 50% in coordination of care (as documented) at patient's floor/unit and/or counseling patient: - Subjective Interval history: Patient was sitting on chair, feeling well today. at the bedside. Denies any pain, nausea, vomiting, good appetite. PT/OT recommended against rehab. - Constitutional Vitals: Abnormal lab results RBC 2.94 M/mcL (4.19-5.50) L 02/02/19 04:55 Hgb 10.3 g/dL (12.9-16.9) L 02/02/19 04:55 Hct 29.8 % (37.5-50.1) L 02/02/19 04:55 MCV 101.4 fL (83.0-100.0) H 02/02/19 04:55 MCH 35.0 pg (28.0-33.3) H 02/02/19 04:55 RDW 15.4 % (11.5-14.5) H 02/02/19 04:55 Plt Count 106 K/mcL (140-400) L 02/02/19 04:55 MPV 9.1 fL (9.4-12.4) L 02/02/19 04:55 PT 16.4 Seconds (9.4-12.1) H 02/02/19 04:55 APTT 40.8 Seconds (26.0-36.0) H 02/01/19 11:03 VBG pCO2 23 mmHg (41-51) L 02/01/19 16:06 VBG pO2 159 mmHg (25-50) H 02/01/19 16:06 VBG HCO3 15 mEq/L (21-27) L 02/01/19 16:06 Chloride 110 mEq/L (98-107) H 02/02/19 04:55 Carbon Dioxide 16 mEq/L (23-29) L 02/02/19 04:55 Glucose 111 mg/dL (70-105) H 02/02/19 04:55 Lactic Acid 2.6 mmol/L (0.5-2.2) H 02/02/19 09:23 Calcium 8.4 mg/dL (8.6-10.3) L 02/02/19 04:55 Total Bilirubin 2.6 mg/dL (0.3-1.0) H 02/02/19 04:55 Direct Bilirubin 0.6 mg/dL (0.0-0.2) H 02/02/19 04:55 Indirect Bilirubin 2.0 mg/dL (0.0-1.2) H 02/02/19 04:55 AST 43 Units/L (13-39) H 02/02/19 04:55 Alkaline Phosphatase 114 Units/L (34-104) H 02/02/19 04:55 Ammonia 78 mcmol/L (16-53) H 02/02/19 09:23 Serum Total Protein 5.5 g/dL (6.4-8.9) L 02/02/19 04:55 Albumin 2.4 g/dL (3.5-5.7) L 02/02/19 04:55 Albumin/Globulin Ratio 0.8 (1.1-2.2) L 02/02/19 04:55 Exam: General: NAD, Head: Atraumatic, normocephalic. Face symmetric Eyes: EOMI, sclerae anicteric ENT: Mucous membranes moist. Trachea midline. Thoracic: No visible chest wall deformities. clear breath sounds Cardio: Normal S1 and S2, regular rhythm Abdomen: Soft, nontender, nondistended. Bowel sounds present Extremities: Warm, well perfused. DP pulses 2+ b/l. Does have 1+ pitting edema to b/l knee Skin: Intact. No rashes, bruises, or ulcers noted Neuro: AAOx3, CN II-XII grossly intact. Strength 5/5 in b/l UE and LE. Palliative Quality Palliative Quality: Screen for Code Status: Yes, Screen for Goals of Care: Yes, Screen for Pain: Yes, If Pain Regimen Started, Initiate Bowel Regimen: Yes, Screen for Nausea/Vomitting: Yes (on lactulose) Code Status: 02/01/19 14:07 Resuscitation Status: Active [RES] Routine Comment: Resuscitation Status: Full Code 02/01/19 18:43 CODE [Resuscitation Status: Active] [RES] Routine Comment: Resuscitation Status: [id number] - Labs CBC & Chem 7: 02/02/19 04:55 02/02/19 04:55 - Impressions Impressions Chest X-Ray 02/01/19 10:26 IMPRESSION: Left lower lobe atelectasis or infiltrate. D/ / 02/01/2019 11:22:52 Ton Ngo MD / [email or web address] Interpreting Provider: Ton Ngo MD - ABG Interpretation ABG results: PT/INR, D-dimer PT 16.4 Seconds (9.4-12.1) H 02/02/19 04:55 Palliative Scale - Palliative Performance Scale How ambulatory is this patient?: Reduced What is patient's level of activity and evidence of disease?: Unable hobby/housework, Significant disease How much self-care assistance does patient require?: Occasional assistance necessary How much oral intake does the patient have?: Normal What is this patient's level of consciousness?: Full or confusion Palliative Performance Score: 60 % Consult Discharge Plan - Plan Instructions: Lactulose (By mouth), Rifaximin (By mouth), Pneumonia (DC) Additional Instructions: Take lactulose as prescribed. Titrate it up so that he had 3 bowel movements daily. If he starts to notice that you becoming confused, please take extra dose of lactulose till you have a bowel movement. Referrals: Tova Fitzgerald MD [Partnered Physician] - (as scheduled) Prescriptions: Amoxicillin/Clavulanate [Augmentin] 875 mg PO BIDWM #10 tablet Rifaximin [Xifaxan] 550 mg PO BID #60 tablet
[2019-02-04] MEDS ORDERED: Furosemide 20 MG TABLET PO SCH (18:00)
[2019-02-04] MEDS ORDERED: Spironolactone 25 MG TABLET PO SCH (18:00)
[2019-02-05] MEDS ORDERED: Spironolactone 25 MG TABLET PO SCH (09:00)
[2019-02-05] MEDS ORDERED: Furosemide 20 MG TABLET PO SCH (09:00)
== END 2019-02-04 16:30 | disposition home health service (06) ==
LOC: 2ANU 10:20 → EMEROOARM 10:20 → 2ANU 14:27 → SUATTDRO 17:23
PROVIDERS: ADMIT Internal Medicine; ATTEND Internal Medicine